=== PATIENT | male | born 1955 | race African-American/Black ===

== ENCOUNTER 2017-05-25 15:39 | Inpatient (IN) | payer MEDICARE, OTHER ==
[~2017-05-25] VITALS: Ht 175.3 cm; Wt 108.8 kg
[~2017-05-25 15:39] MED LIST: ATOR40TA21 PO; CALC667C4 PO; CARV6.2579 PO; CHLO25TA14 PO; CNC30T PO; COU2 PO; DOCU-159 PO; FOLI-49 PO; SEVE800T10 PO
[2017-05-25] MEDS ORDERED: ASPIRIN 81 MG TAB PO STA (16:12)
--- NOTE | 2017-05-25 16:16 | ERA ---
ER Documentation Chief Complaint Date/Time DATE: 05/25/17 TIME: 16:13 Chief Complaint pt shayla from dailysis for pain at sabine cath site, inserted 05/24/17 & cp HPI Patient is a 62-year-old male with diabetes mellitus, hypertension, and end- stage renal disease who presents to the ER with sudden onset, constant, moderate dull, pressure-like substernal chest pain. He denies shortness of breath. He denies radiation to the back, arms or neck. He denies pleuritic pain. He denies cough. He denies abdominal pain. He denies diaphoresis or vomiting. Patient had a dialysis catheter placed yesterday, but did not have pain around the dialysis catheter earlier today. He was 2 hours into his dialysis when his symptoms started. He states that he felt anxious when the pain started. The pain was 5 out of 10 at onset and is currently 1 out of 10. The patient denies history of ME or coronary artery disease and denies having had recent catheterization or stress test. 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 ROS All systems reviewed and are negative except as per history of present illness. Medications Home Meds Discontinued Reported Medications Warfarin Sod (Coumadin) 2 Mg Tab, 4 MG PO DAILY for 30 Days, TAB 04/13/16 Cinacalcet* (Sensipar*) 30 Mg Tab, 30 MG PO DAILY, TAB 04/05/16 Folic Acid* (Folic Acid*) 1 Mg Tablet, 1 MG PO DAILY, TAB 04/05/16 Carvedilol* (Carvedilol*) 6.25 Mg Tablet, 6.25 MG PO BID, #60 TAB 04/05/16 Docusate Sodium* (Docusate Sodium*) 100 Mg Capsule, 100 MG PO TID, #60 CAP 04/05/16 Chlorpromazine Hcl* (Chlorpromazine Hcl*) 25 Mg Tablet, 25 MG PO TID, TAB 04/05/16 Sevelamer Hcl* (Renagel*) 800 Mg Tablet, 800 MG PO TID 01/22/12 Calcium Acetate (Phoslo) 667 Mg Capsule, 667 MG PO TID 01/22/12 Atorvastatin (Lipitor) 40 Mg Tablet, 40 MG PO DAILY 01/22/12 Allergies Allergies: Coded Allergies: No Known Allergy (Unverified , 05/25/17) PMhx/Soc Past medical history: Diabetes mellitus, hypertension, end-stage renal disease Past surgical history: Dialysis catheter Social history: Denies current or prior alcohol or tobacco History of Surgery: Yes (Right upper arm AV fistula) Anesthesia Reaction: No Hx Neurological Disorder: No Hx Respiratory Disorders: No Hx Cardiac Disorders: Yes (tachycardia, non-stemi) Hx Psychiatric Problems: No Hx Miscellaneous Medical Probl: Yes (dm) Hx Alcohol Use: No Hx Substance Use: No Hx Tobacco Use: No Smoking Status: Never smoker FmHx Noncontributory Physical Exam Vitals Vital Signs Date Time Temp Pulse Resp B/P Pulse Ox O2 Delivery O2 Flow Rate FiO2 05/25/17 16:02 92 17 129/61 97 Room Air 05/25/17 15:56 97.9 89 20 152/92 97 Physical Exam Const: Alert, no acute distress Head: Atraumatic Eyes: Normal Conjunctiva, no pallor, no icterus ENT: Normal External Ears, Nose and Mouth. Mucous membranes moist Neck: Full range of motion..~ No meningismus. No JVD Resp: Clear to auscultation bilaterally, no wheezes, no rales Cardio: Regular rate and rhythm, no murmurs Abd: Soft, non tender, non distended. Skin: No petechiae or rashes Back: No midline or flank tenderness Ext: No cyanosis, 2+ pitting edema to the upper shins bilaterally, symmetric Neur: Awake and alert, cranial nerves II through XII intact bilaterally, strength and sensation full in 4 extremities. Psych: Normal Mood and Affect Result Diagram: 05/25/17 1815 05/25/17 1815 Results 24 hrs Laboratory Tests Test 05/25/17 18:15 White Blood Count 6.210^3/ul Red Blood Count 3.9310^6/ul Hemoglobin 9.7g/dl Hematocrit 31.0% Mean Corpuscular Volume 78.9fl Mean Corpuscular Hemoglobin 24.7pg Mean Corpuscular Hemoglobin Concent 31.3g/dl Red Cell Distribution Width 15.9% Platelet Count 52870^3/UL Mean Platelet Volume 11.5fl Neutrophils % 67.7% Lymphocytes % 6.8% Monocytes % 11.5% Eosinophils % 12.8% Basophils % 0.7% Nucleated Red Blood Cells % 0.0/100WBC Neutrophils # (Manual) 4.210^3/ul Lymphocytes # 0.410^3/ul Monocytes # 0.710^3/ul Eosinophils # 0.810^3/ul Basophils # 0.010^3/ul Nucleated Red Blood Cells # 0.010^3/ul Prothrombin Time 14.6Sec Prothrombin Time Ratio 1.1 INR International Normalized Ratio 1.14 Activated Partial Thromboplast Time 34.8Sec Sodium Level 141mmol/L Potassium Level 4.4mmol/L Chloride Level 98mmol/L Carbon Dioxide Level 20mmol/L Anion Gap 27 Blood Urea Nitrogen 82mg/dl Creatinine 16.48mg/dl Glucose Level 85mg/dl Calcium Level 6.4mg/dl Total Bilirubin 0.1mg/dl Direct Bilirubin 0.00mg/dl Indirect Bilirubin 0.1mg/dl Aspartate Amino Transf (AST/SGOT) < 8IU/L Alanine Aminotransferase (ALT/SGPT) 28IU/L Alkaline Phosphatase 97IU/L Troponin I 0.080ng/ml B-Type Natriuretic Peptide 71805EM/ML Total Protein 6.9g/dl Albumin 3.5g/dl Globulin 3.40g/dl Albumin/Globulin Ratio 1.02 Current Medications Medications (Trade) Dose Ordered Sig/Izabela Route PRN Reason Start Time Stop Time Status Last Admin Dose Admin Aspirin (Aspirin) 162 mg ONCE STAT PO 05/25/17 16:12 05/25/17 16:14 DC Ondansetron HCl (Zofran Inj) 4 mg ER BRIDGE PRN IV NAUSEA AND/OR VOMITING 05/25/17 20:00 05/26/17 19:59 UNV Acetaminophen (Tylenol Tab) 650 mg ER BRIDGE PRN PO MILD PAIN/FEVER 05/25/17 20:00 05/26/17 19:59 UNV Procedures/MDM EKG read by me: Time 1634, rate 76 Rhythm: Sinus bradycardia Castor: Right superior axis Intervals: Normal ST-T waves: T-wave inversion in aVL only does not appear ischemic Ectopy: Frequent PACs and pattern of atrial bigeminy Q-waves: Questionable inferior Q waves, poor R-wave progression Impression: Bradycardia with atrial bigeminy, right ventricular hypertrophy , possible prior inferior ME, no obvious ischemia MDM: Patient is a 62-year-old male who presents to the ER with chest pain while at dialysis. His initial EKG is nonischemic. His first troponin is 0.08, which is not remarkable in the setting of end-stage renal disease. The patient had a dialysis catheter placed yesterday, and on x-ray the positioning appears to be unusual. A CT was performed, and it appears that the catheter tracks through the soft tissue towards the right subclavian vein, but is not well- positioned. He is having mild bleeding from the insertion site. He will likely need to have the catheter removed and a new one placed. I will admit him for further regiment of his dialysis catheter as well as chest pain workup. He received aspirin prior to ER arrival. On reassessment his pain had somewhat improved. A deep brachial peripheral line was placed with ultrasound guidance by myself due to poor IV access. The patient does not have indications for emergent dialysis at this time. I discussed the case with Dr. Catalan. Departure Diagnosis: Primary Impression: Chest pain Qualified Code: R07.9 - Chest pain, unspecified type Additional Impression: Complication of vascular dialysis catheter Qualified Code: T82.49XA - Other complication of vascular dialysis catheter, initial encounter Condition: ISAEL Randhawa MD May 25, 2017 16:12
--- NOTE | 2017-05-25 17:17 | RADRPT ---
PROCEDURE: Portable chest x-ray. CLINICAL INDICATION: 62 years of age, male. Chest pain. TECHNIQUE: Portable AP view of the chest. COMPARISON: April 11, 2016 FINDINGS: There is a double lumen hemodialysis catheter that has an unusual position. It may have been insert ed in the left supraclavicular fossa. The line crosses midline above the clavicles and the tip over lies the medial right clavicle and right lung apex. It is not situated in the SVC or right atrium. This line is new since prior exam. Enlarged cardiopericardial silhouette. Mediastinal contours are otherwise normal. Pulmonary vessels are prominent and indistinct with prominent interstitial markings. Negative for f ocal lung consolidation. Negative for pleural effusion or pneumothorax. No acute bony abnormality. IMPRESSION: Cardiomegaly and interstitial pulmonary edema. Unusual position of the double-lumen hemodialysis catheter. Recommend correlation with the procedur e history. The tip is not situated in the SVC or right atrium. This line is new since prior chest x-ray April 11, 2016 and does not follow the expected anatomic course of the veins. Suggest further e valuation with chest CT that may be performed without intravenous contrast. Findings were discussed with Dr. Kj Washington by Dr. Mackenzie Elias on May 25, 2017 at 5:55 PM. RPTAT: HCTS Physician Nuris Date Time Electronically viewed and signed by Physician Nuris on 05/25/2017 17:58 CS/
[2017-05-25 18:37] LABS: ABNORMAL IP MESSAGE 1; BASOPHILS % 0.7 % (0.0-2.0); EOSINOPHILS # 0.8 10^3/ul (0.0-0.5); EOSINOPHILS % 12.8 % (0.0-7.0); HEMOGLOBIN 9.7 g/dl (14.0-18.0); LYMPHOCYTES # 0.4 10^3/ul (0.8-2.9); LYMPHOCYTES % 6.8 % (15.0-51.0); MEAN CORPUSCULAR HEMOGLOBIN 24.7 pg (29.0-33.0); MEAN CORPUSCULAR HGB CONC 31.3 g/dl (32.0-37.0); MEAN CORPUSCULAR VOLUME 78.9 fl (82.0-101.0); MEAN PLATELET VOLUME 11.5 fl (7.4-10.4); MONOCYTE # 0.7 10^3/ul (0.3-0.9); MONOCYTES % 11.5 % (0.0-11.0); NEUTROPHILS % 67.7 % (39.0-77.0); PLATELET COUNT 160 10^3/UL (140-415); POSITIVE DIFF @See below; RED BLOOD COUNT 3.93 10^6/ul (4.70-6.10); RED CELL DISTRIBUTION WIDTH 15.9 % (11.5-14.5); WHITE BLOOD COUNT 6.2 10^3/ul (4.8-10.8)
[2017-05-25 18:51] LABS: INR 1.14; PROTIME 14.6 Sec (12.2-14.2); PT RATIO 1.1
[2017-05-25 18:52] LABS: PARTIAL THROMBOPLASTIN TIME 34.8 Sec (25.0-35.0)
[2017-05-25 18:57] LABS: ALANINE AMINOTRANSFERASE 28 IU/L (13-69); ALBUMIN 3.5 g/dl (3.3-4.9); ALBUMIN/GLOBULIN RATIO 1.02; ALKALINE PHOSPHATASE 97 IU/L (42-121); ANION GAP 27 (8-16); ASPARTATE AMINO TRANSFERASE < 8 IU/L (15-46); BILIRUBIN,INDIRECT 0.1 mg/dl (0-1.1); BILIRUBIN,TOTAL 0.1 mg/dl (0.2-1.3); BLOOD UREA NITROGEN 82 mg/dl (7-20); CALCIUM 6.4 mg/dl (8.4-10.2); CARBON DIOXIDE 20 mmol/L (21-31); CHLORIDE 98 mmol/L (97-110); GLUCOSE 85 mg/dl (70-220); POTASSIUM 4.4 mmol/L (3.5-5.1); SODIUM 141 mmol/L (135-144); TOTAL PROTEIN 6.9 g/dl (6.1-8.1)
[2017-05-25 19:03] LABS: CREATININE 16.48 mg/dl (0.61-1.24)
--- NOTE | 2017-05-25 19:22 | RADRPT ---
AMENDMENT: 06/02/2017 11:35:24 PM Mackenzie Elias M.D One or more of the following dose reduction techniques were used: - Automated exposure control. - Adjustment of the mA and/or kV according to patient size. - Use of iterative reconstruction technique. Sagittal and coronal re-formations were constructed. PROCEDURE: CT CHEST WITHOUT CONTRAST: CLINICAL INDICATION: 62 years of age, male. Abnormal position of hemodialysis catheter seen on [facility] st x-ray COMPARISON: Chest x-ray from the same day TECHNIQUE: CT of the chest was performed without IV contrast. Dose information: The estimated radiation dose (CTDI vol mGy) for each series in this exam is 16.8 . The estimated cumulative dose (DLP mGy-cm) is 741 . FINDINGS: In the absence of intravenous contrast, the study constitutes a limited assessment of the solid orga ns and vessels. CHEST: Medical devices: There is a hemodialysis catheter that has been inserted into the left side of the n angel that is an abnormal position. The catheter does not enter the left internal jugular vein. It c ourses lateral to the left internal jugular vein and then anterior to the medial clavicles across mi dline within the subcutaneous fat. The distal tip is posterior to the right clavicle and may be sit uated in the right subclavian vein. There is soft tissue swelling and soft tissue gas in the left s alberto of the neck along the course of the catheter. Thyroid: Normal. Lymph nodes: No supraclavicular, axillary, mediastinal, or hilar lymphadenopathy. Vasculature: Evaluation of the vasculature is limited without intravenous contrast. There is calcif ication in the left brachiocephalic vein that is a small vessel in keeping with chronic thrombus. Ca lcification in the SVC and main pulmonary artery also likely represents chronic thrombus (). Main pulmonary artery is enlarged and measures 4.8 cm in keeping with pulmonary artery hypertension. There is focal calcification in the anterior wall of the main pulmonary artery in keeping with chr onic thrombus (). There is thin calcification in the sam of the right and left pulmonary arter ies in keeping with pulmonary artery hypertension. Atherosclerosis thoracic aorta and great vessels. Negative for thoracic aortic aneurysm. Heart: Cardiomegaly. There is extensive four-vessel coronary artery calcification. There is calcif ication of the aortic valve and mitral valve annulus. No pericardial effusion. Other mediastinal structures: Normal. Lung parenchyma and pleura: Mild diffuse ground glass opacity likely represents pulmonary edema. Ne gative for interlobular septal thickening. Airways: Normal. Chest wall: Body wall edema. There is advanced bilateral gynecomastia. Upper abdomen: There is extensive calcification of small arterial branches in keeping with end-stag e renal disease. There are bilateral enlarged multicystic kidneys in keeping with polycystic kidney disease. Musculoskeletal: Bones are osteopenic. No suspicious bone lesions. IMPRESSION: 1. Abnormal position of the hemodialysis catheter. The catheter has been inserted into the left mayo e of the neck and is not in the left internal jugular vein. It crosses midline in the soft tissues and the distal tip is posterior to the right clavicle and may be situated in the right subclavian ve in. Recommend surgery consultation for removal and replacement of the catheter. This line should n ot be used for hemodialysis. There is soft tissue swelling and soft tissue gas in the left side of t he neck. Correlate clinically for signs of infection or hematoma. 2. Left brachiocephalic vein is small and contains calcified material that likely represents chronic thrombus. The patency of this vein cannot be evaluated without intravenous contrast. Calcificatio n in the SVC and main pulmonary artery also likely represents chronic thrombus. 3. Cardiomegaly and extensive coronary artery calcification. Enlarged main pulmonary artery and mil d pulmonary artery wall calcifications are in keeping with pulmonary artery hypertension. 4. Diffuse ground-glass opacity in the lung parenchyma in keeping with interstitial pulmonary edema without intralobular septal thickening. 5. Polycystic kidney disease with enlarged multicystic kidneys. Critical results abnormal position of hemodialysis catheter and recommendation for surgery consultat ion were discussed with Dr. Kj Washington by Dr. Mackenzie Elias on May 25, 2017 at 6:55 PM. RPTAT: HCTS Physician Nuris Date Time Electronically viewed and signed by Charlotte Elias Physician on 06/02/2017 23:36 CS/
[2017-05-25 19:44] LABS: B-TYPE NATRIURETIC PEPTIDE 95100 PG/ML (0-125)
[2017-05-25 20:00] VITALS: BP 126/77; RESP 17
[2017-05-25] MEDS ORDERED: ONDANSETRON 4 MG INJ IV PRN (20:00)
[2017-05-25] MEDS ORDERED: ACETAMINOPHEN 325 MG TAB PO PRN (20:00)
[2017-05-25 20:59] VITALS: PULSE 92
[2017-05-25 21:29] VITALS: Ht 175.3 cm; Wt 108.8 kg
[2017-05-25] MEDS: morphine 2 MG INJ IV PRN (21:51)
[2017-05-26] VITALS (20 sets, daily range): BP systolic 102–146; BP diastolic 47–78; PULSE 70–141; RESP 15–20
[2017-05-26] MEDS ORDERED: LORAZEPAM 2 MG INJ IV PRN (01:50)
[2017-05-26] MEDS ORDERED: LORAZEPAM 2 MG INJ ONE (02:00)
[2017-05-26] MEDS: morphine 2 MG INJ IV PRN (02:55)
[2017-05-26] MEDS ORDERED: PHYTONADIONE 10 MG/ML INJ ONE (04:19)
[2017-05-26 05:22] LABS: TROPONIN-I 0.12 ng/ml (0.00-0.12)
[2017-05-26 06:42] LABS: CK-MB 13.9 ng/ml (0.0-2.4)
[2017-05-26 06:53] LABS: ABNORMAL IP MESSAGE 1; BASOPHIL # 0.1 10^3/ul (0.0-0.1); EOSINOPHILS # 1.1 10^3/ul (0.0-0.5); HEMOGLOBIN 9.9 g/dl (14.0-18.0); LYMPHOCYTES # 0.5 10^3/ul (0.8-2.9); MEAN CORPUSCULAR HEMOGLOBIN 25.3 pg (29.0-33.0); MEAN CORPUSCULAR HGB CONC 31.9 g/dl (32.0-37.0); MEAN CORPUSCULAR VOLUME 79.3 fl (82.0-101.0); MEAN PLATELET VOLUME 10.8 fl (7.4-10.4); MONOCYTE # 0.7 10^3/ul (0.3-0.9); MONOCYTES % 10.1 % (0.0-11.0); NEUTROPHILS % 64.6 % (39.0-77.0); PLATELET COUNT 155 10^3/UL (140-415); POSITIVE DIFF @See below; RED BLOOD COUNT 3.91 10^6/ul (4.70-6.10); RED CELL DISTRIBUTION WIDTH 15.9 % (11.5-14.5); WHITE BLOOD COUNT 6.7 10^3/ul (4.8-10.8)
--- NOTE | 2017-05-26 07:04 | HP ---
DATE OF ADMISSION: 05/25/2017 CHIEF COMPLAINT: Chest pain. HISTORY OF PRESENT ILLNESS: Mr. Cannon is a pleasant 62-year-old male, who has a history of diabetes mellitus, hypertension, end- stage renal disease, as well as obesity, who was at hemodialysis today. When he was about 1-1/2 hours into dialysis all of a sudden he developed sudden onset and with left-sided chest pain radiating to his neck and his back. The patient had a temporary dialysis catheter placed yesterday after he had developed some problems with he has AV fistula in his right hand. However, in the emergency room, a CT scan showed that the temporary access was placed wrongly and was not actually in the venous embolism, but was in soft tissue. He denied shortness of breath. There has been no fever. He has an area just above the incision site that has been oozing blood and the bleeding is being controlled using Surgicel and multiple pressure dressings. REVIEW OF: Otherwise a 12-point review of systems negative. He has not had any passing out episode. He has not had any dizziness. No abdominal pain. PAST MEDICAL HISTORY: 1. Hypertension. 2. Diabetes. 3. Anemia of chronic kidney disease. 4. End-stage renal disease, on hemodialysis. 5. Upper extremity thrombosis. Meanwhile patient was supposed to be on Coumadin. 6. Polycystic kidney disease. ALLERGIES: HE HAS NO KNOWN DRUG ALLERGIES. SOCIAL HISTORY: Denies tobacco, alcohol, or illicit drug use. FAMILY HISTORY: Noncontributory. MEDICATIONS: Reconciled from his last visit. However, the patient and his report that he does not take any medications. PHYSICAL EXAMINATION: VITAL SIGNS: Temperature 97.9, pulse 92, respirations 17, blood pressure 129/61, saturations 97 percent on room air. GENERAL: Obese male, alert, oriented, in no distress. HEENT: Head is normocephalic. Pupils equal, round, reactive. No scleral icterus. Mucous membranes moist. Posterior pharynx free of exudate. NECK: Patient has an oozing site on the left part of his chest and you can see the PermCath. Dry dressing to left side of his neck, otherwise anterior chest wall as well. The oozing site is requiring multiple pressure dressings. LUNGS: Auscultation of the chest revealed reduced breath sounds bilaterally. CARDIOVASCULAR: S1, S2 with no added sounds or murmurs. ABDOMEN: Soft, nontender, nondistended with normoactive bowel sounds. LOWER EXTREMITIES: There is bilateral mild edema, but no focal deficits. SKIN: Devoid of rash or jaundice. LAB VALUES: WBC count was normal, hemoglobin was low at 9.7, hematocrit 31, platelets were normal at 16,000. INR was 1.14, which is consistent with the fact that the patient was not taking his Coumadin. BUN 82, creatinine 16.48, which is quite elevated; his CO2 level was a little on the low side as well at 20; calcium was also low at 6.4. Troponin 0.08. So an EKG was quite abnormal with bradycardia, bigeminy, but no evidence of acute ME. Patient also had multiple PACs and possible Q-waves. IMAGING STUDIES: A CT was done of the chest and this showed that the catheter was not in the venous system at all, but instead tracks through soft tissue to his right subclavian vein with the tip in the right subclavian vein and soft tissue swelling and gas in the left side of the neck. Also noted was polycystic kidney disease with enlarged multicystic kidneys and chronic thrombosis in the left brachiocephalic, superior vena cava and pulmonary artery. ASSESSMENT: A 62-year-old male, who was sent from hemodialysis because of chest pain with the followin. Improper positioning of temporary dialysis catheter tracking through soft tissue with tip in the superior vena cava and the right subclavian vein. 2. Left anterior wall chest pain, likely secondary to #1. 3. End-stage renal disease, on hemodialysis. 4. Anemia of chronic kidney disease. 5. Intractable bleeding in the left neck requiring pressure dressings. 6. 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 7. Diabetes mellitus with good control. 8. Hypertension, also with good control. 9. Pulmonary artery hypertension. 10. Polycystic kidney disease, likely causing #3. 11. Troponin Leak likely 2/2 ESRD PLAN: 1. The patient has been admitted to telemetry floor. Will need urgent vascular surgical consultation to remove the catheter and possibly place a new one. He does have a graft on his right arm, which he says that the site is still fairly usable, but we will defer to Vascular Surgery, as well as Nephrology regarding this. In the interim, we will continue to use pressure dressings on his bleeding. The patient might have received some heparin during dialysis, which may be contributing to this, as the patient states he does not take his Coumadin. However, , I am going to give a dose of FFP and vitamin K to see if this will help a little bit with the bleeding. The patient was anemic prior to this and so we will also type and screen packed red cells just in case you need transfusion with the next hemodialysis. To be on the safe side, we will complete ACS rule out get a 2D echo as well as Cardiology consult. Even though I believe the patient's chest pain is likely from the catheter that is trapped into his soft tissue. Regarding his chronic thrombus, again defer to Vascular Surgery regarding permanent management. However, patient is not a candidate for anticoagulation at this time, and so further interventions will depend on the clinical findings. 2. For his diabetes mellitus, he was placed on an 1800-calorie diet and sliding scale insulin and we will monitor his blood glucose levels and for his high blood pressure, we will resume his home meds. This plan of care has been reviewed with patient in detail. Questions have been answered. 3. Prophylaxis is SCDs. Dictated By: Abril Paul MD /liang/emily /Document#: [id number] VIVIAN
[2017-05-26 07:19] LABS: ALBUMIN 3.1 g/dl (3.3-4.9); CALCIUM 6.1 mg/dl (8.4-10.2); PHOSPHORUS 8.4 mg/dl (2.5-4.9); POTASSIUM 5.2 mmol/L (3.5-5.1)
[2017-05-26 07:27] LABS: INR 1.19; PARTIAL THROMBOPLASTIN TIME 38.3 Sec (25.0-35.0); PROTIME 15.2 Sec (12.2-14.2); PT RATIO 1.2
[2017-05-26 07:29] LABS: CREATININE 17.12 mg/dl (0.61-1.24)
[2017-05-26 07:34] LABS: TROPONIN-I 0.149 ng/ml (0.00-0.12)
[2017-05-26 07:51] LABS: ALBUMIN 3.3 g/dl (3.3-4.9); ALBUMIN/GLOBULIN RATIO 1.03; CALCIUM 6.2 mg/dl (8.4-10.2); MAGNESIUM 1.8 mg/dl (1.7-2.5); PHOSPHORUS 8.5 mg/dl (2.5-4.9); POTASSIUM 5.2 mmol/L (3.5-5.1); TOTAL PROTEIN 6.5 g/dl (6.1-8.1)
[2017-05-26] MEDS ORDERED: CALCIUM GLUCONATE 10% 2 GM in SOD CHLORIDE 0.9% 100 ML IVPB ONE (08:00)
[2017-05-26 08:02] LABS: CREATININE 17.13 mg/dl (0.61-1.24)
--- NOTE | 2017-05-26 12:39 | CONS ---
Date/Time of Note Date/Time of Note DATE: 05/26/17 TIME: 12:31 Assessment/Plan Assessment/Plan Additional Assessment/Plan 1. Left neck, catheter site bleeding 2. Impropre positioning of left HD catheter 3. ESRD on HD MWF 4. Anemia multifactorial Chronic renal failure + bleeding 5. Hyperkalemia, uremia due to missed HD 6. 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 8. Diabetes melitus 9. Pulmonary HTN 10.H/o Polycystic Kidney disease causign ESRD onHD Plan: k high, Hb stable pt has pressure dressing on left neck, left chest permacath in place will plan for HD today after catether replacedment has been consulted to see pt- will be seen today Pt currently hemodynamically stable Consultation Date/Type/Reason Admit Date/Time May 25, 2017 at 19:39 Date of Consultation: May 26, 2017 Type of Consultation: CONSULTATION Reason for Consultation Acute hyperkalemia, ESRD on HD, Uremia Referring Provider: VASYL GALLO Hx of Present Illness 62-year-old male, who has a history of diabetes mellitus, hypertension, end- stage renal disease, as well as obesity, who was at hemodialysis today. When he was about 1-1/2 hours into dialysis all of a sudden he developed sudden onset and with left-sided chest pain radiating to his neck and his back. The patient had a temporary dialysis catheter placed yesterday after he had developed some problems with he has AV fistula in his right hand. However, in the emergency room, a CT scan showed that the temporary access was placed wrongly and was not actually in the venous embolism, but was in soft tissue. He denied shortness of breath. There has been no fever. He has an area just above the incision site that has been oozing blood and the bleeding is being controlled using Surgicel and multiple pressure dressings. pt dialysis catheter not in appropriate position, need to be changed, Vascular surgery has been consulted on the case. Constitutional: no complaints Eyes: no complaints ENT: other (left neck bleeding ) Respiratory: no complaints Cardiovascular: no complaints Gastrointestinal: no complaints Genitourinary: no complaints Musculoskeletal: no complaints Skin: no complaints Neurologic: no complaints Endocrine: no complaints Lymphatic: no complaints Psychological: no complaints Immunologic: no complaints Past Medical History Medical History: other (ESRD on HD, HTN ) Past Surgical History Past Surgical Hx: other (RUE AVR, LEft chest permacath surgery ) Family History Significant Family History: no pertinent family hx Social History Alcohol Use: none Smoking Status: Never smoker Drug Use: none Exam/Review of Systems Vital Signs Vitals Vital Signs Date Time Temp Pulse Resp B/P Pulse Ox O2 Delivery O2 Flow Rate FiO2 05/26/17 12:07 98.0 94 18 140/65 99 05/25/17 20:23 Room Air Intake and Output 05/25/17 05/25/17 05/26/17 15:00 23:00 07:00 Intake Total 250 ml Balance 250 ml Exam GENERAL: Obese male, alert, oriented, in no distress. HEENT: Head is normocephalic. Pupils equal, round, reactive. No scleral icterus. Mucous membranes moist. Posterior pharynx free of exudate. NECK: Patient has an oozing site on the left part of his chest and you can see the PermCath. Dry dressing to left side of his neck, otherwise anterior chest wall as well. The oozing site is requiring multiple pressure dressings. LUNGS: Auscultation of the chest revealed reduced breath sounds bilaterally. CARDIOVASCULAR: S1, S2 with no added sounds or murmurs. ABDOMEN: Soft, nontender, nondistended with normoactive bowel sounds. LOWER EXTREMITIES: There is bilateral mild edema, but no focal deficits. SKIN: Devoid of rash or jaundice. Results Result Diagram: 05/26/17 0431 05/26/17 0431 Results 24 hrs Laboratory Tests Test 05/25/17 18:15 05/25/17 23:00 05/26/17 04:31 White Blood Count 6.2 6.7 Red Blood Count 3.93 L 3.91 L Hemoglobin 9.7 L 9.9 L Hematocrit 31.0 L 31.0 L Mean Corpuscular Volume 78.9 L 79.3 L Mean Corpuscular Hemoglobin 24.7 L 25.3 L Mean Corpuscular Hemoglobin Concent 31.3 L 31.9 L Red Cell Distribution Width 15.9 H 15.9 H Platelet Count 160 155 Mean Platelet Volume 11.5 H 10.8 H Neutrophils % 67.7 64.6 Lymphocytes % 6.8 L 7.0 L Monocytes % 11.5 H 10.1 Eosinophils % 12.8 H 17.0 H Basophils % 0.7 1.0 Nucleated Red Blood Cells % 0.0 0.0 Neutrophils # (Manual) 4.2 4.3 Lymphocytes # 0.4 L 0.5 L Monocytes # 0.7 0.7 Eosinophils # 0.8 H 1.1 H Basophils # 0.0 0.1 Nucleated Red Blood Cells # 0.0 0.0 Prothrombin Time 14.6 H 15.2 H Prothrombin Time Ratio 1.1 1.2 INR International Normalized Ratio 1.14 1.19 Activated Partial Thromboplast Time 34.8 38.3 H Sodium Level 141 143 Potassium Level 4.4 5.2 H Chloride Level 98 99 Carbon Dioxide Level 20 L 22 Anion Gap 27 H 27 H Blood Urea Nitrogen 82 H 84 H Creatinine 16.48 H 17.13 H Glucose Level 85 88 Calcium Level 6.4 L 6.2 L Total Bilirubin 0.1 L 0.0 L Direct Bilirubin 0.00 0.00 Indirect Bilirubin 0.1 0.0 Aspartate Amino Transf (AST/SGOT) < 8 L 10 L Alanine Aminotransferase (ALT/SGPT) 28 27 Alkaline Phosphatase 97 95 Troponin I 0.080 0.120 0.149 *H B-Type Natriuretic Peptide 38216 H Total Protein 6.9 6.5 Albumin 3.5 3.3 Globulin 3.40 H 3.20 Albumin/Globulin Ratio 1.02 1.03 Creatine Kinase 1550 H 1455 H Creatine Kinase Index 0.9 0.9 Creatinine Kinase MB (Mass) 13.90 H 13.00 H Phosphorus Level 8.5 H Magnesium Level 1.8 Medications Medications Current Medications Morphine Sulfate (morphine) 2 mg Q4H PRN IV PAIN Last administered on 02:55; Admin Dose 2 MG; Start 05/25/17 at 22:00 Lorazepam (Ativan) 1 mg Q4H PRN IV AGITATION/ANXIETY Last administered on 02:00; Admin Dose 1 MG; Start 05/26/17 at 01:50 SHAWNA WILHELM MD May 26, 2017 12:39
--- NOTE | 2017-05-26 12:50 | PN ---
Date/Time of Note Date/Time of Note DATE: 05/26/17 TIME: 12:40 Assessment/Plan VTE Prophylaxis VTE Prophylaxis Intervention: SCD's Lines/Catheters IV Catheter Type (from Nrsg): Peripheral IV Assessment/Plan Assessment/Plan IMPRESSION 1. Improper placement of Dialysis catheter, with oozing of blood 2. Left anterior wall chest pain, likely secondary to #1. but 3rd trop slightly elevated 3. End-stage renal disease, on hemodialysis. 4. Anemia of chronic kidney disease. 5. Pulmonary Edema 6. 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 7. Diabetes mellitus with good control. 8. Hypertension: BP within goal 9. Pulmonary artery hypertension. 10. Polycystic kidney disease, likely causing #3. 11. Troponin Leak likely 2/2 ESRD PLAN vascular surgeon for removal of catheter and placement of temporary access for dialysis. Nephrology on board chest pain likely form improper catheter placement, but third trop slightly elevated, most likely a result of demand ischemia in dialysis pt. cont current meds with adjustment as needed Subjective 24 Hr Interval Summary Free Text/Dictation continued oozing of blood at dialysis catheter site Exam/Review of Systems Vital Signs Vitals Vital Signs Date Time Temp Pulse Resp B/P Pulse Ox O2 Delivery O2 Flow Rate FiO2 05/26/17 12:07 98.0 94 18 140/65 99 05/25/17 20:23 Room Air Intake and Output 05/25/17 05/25/17 05/26/17 15:00 23:00 07:00 Intake Total 250 ml Balance 250 ml Exam Constitutional: alert, oriented, well developed Head: atraumatic, normocephalic Eyes: EOMI, PERRL Neck: other (oozing of blood in left upper chest) Respiratory: clear to auscultation, normal air movement Cardiovascular: nl pulses, regular rate and rhythm Gastrointestinal: non-tender, soft Extremities: normal pulses Results Result Diagram: 05/26/17 0431 05/26/17 0431 Results 24 hrs Laboratory Tests Test 05/25/17 18:15 05/25/17 23:00 05/26/17 04:31 White Blood Count 6.2 6.7 Red Blood Count 3.93 L 3.91 L Hemoglobin 9.7 L 9.9 L Hematocrit 31.0 L 31.0 L Mean Corpuscular Volume 78.9 L 79.3 L Mean Corpuscular Hemoglobin 24.7 L 25.3 L Mean Corpuscular Hemoglobin Concent 31.3 L 31.9 L Red Cell Distribution Width 15.9 H 15.9 H Platelet Count 160 155 Mean Platelet Volume 11.5 H 10.8 H Neutrophils % 67.7 64.6 Lymphocytes % 6.8 L 7.0 L Monocytes % 11.5 H 10.1 Eosinophils % 12.8 H 17.0 H Basophils % 0.7 1.0 Nucleated Red Blood Cells % 0.0 0.0 Neutrophils # (Manual) 4.2 4.3 Lymphocytes # 0.4 L 0.5 L Monocytes # 0.7 0.7 Eosinophils # 0.8 H 1.1 H Basophils # 0.0 0.1 Nucleated Red Blood Cells # 0.0 0.0 Prothrombin Time 14.6 H 15.2 H Prothrombin Time Ratio 1.1 1.2 INR International Normalized Ratio 1.14 1.19 Activated Partial Thromboplast Time 34.8 38.3 H Sodium Level 141 143 Potassium Level 4.4 5.2 H Chloride Level 98 99 Carbon Dioxide Level 20 L 22 Anion Gap 27 H 27 H Blood Urea Nitrogen 82 H 84 H Creatinine 16.48 H 17.13 H Glucose Level 85 88 Calcium Level 6.4 L 6.2 L Total Bilirubin 0.1 L 0.0 L Direct Bilirubin 0.00 0.00 Indirect Bilirubin 0.1 0.0 Aspartate Amino Transf (AST/SGOT) < 8 L 10 L Alanine Aminotransferase (ALT/SGPT) 28 27 Alkaline Phosphatase 97 95 Troponin I 0.080 0.120 0.149 *H B-Type Natriuretic Peptide 60610 H Total Protein 6.9 6.5 Albumin 3.5 3.3 Globulin 3.40 H 3.20 Albumin/Globulin Ratio 1.02 1.03 Creatine Kinase 1550 H 1455 H Creatine Kinase Index 0.9 0.9 Creatinine Kinase MB (Mass) 13.90 H 13.00 H Phosphorus Level 8.5 H Magnesium Level 1.8 Medications Medications Current Medications Morphine Sulfate (morphine) 2 mg Q4H PRN IV PAIN Last administered on 02:55; Admin Dose 2 MG; Start 05/25/17 at 22:00 Lorazepam (Ativan) 1 mg Q4H PRN IV AGITATION/ANXIETY Last administered on 8/26/ 17at 02:00; Admin Dose 1 MG; Start 05/26/17 at 01:50 JOVANI CHUNG MD May 26, 2017 12:50
--- NOTE | 2017-05-26 13:19 | OPR ---
Date/Time of Note Date/Time of Note DATE: 05/26/17 TIME: 13:17 Operative Report Procedure Date: May 26, 2017 Preoperative Diagnosis End-stage renal disease Postoperative Diagnosis Same Operation Performed 1 Removal of the permacath 2 spinal right femoral dialysis catheter Surgeon: ZOIE GOLDMAN MD Anesthesia Type: other Estimated Blood Loss: none Transfusion Required: no Specimen: none Grafts/Implants: none Complications: no Pt Condition Post Procedure: critical Indications End-stage renal disease Operative\Procedure Findings Dictated Procedure Description She was placed supine position prepped and draped in usual sterile fashion timeout was called Access was gained the right femoral vein after using 1% lidocaine I was advanced without any difficulty subcutaneous tissues were dilated 20 cm dialysis catheter was advanced over a guidewire secured to skin using silk sutures both ports of the catheter were aspirated and injected using a by saline solution Next the cuff of the catheter in the left internal jugular vein was identified Using a hemostat the catheter and the cuff were removed in entirety appropriate dressings applied ZOIE GOLDMAN MD May 26, 2017 13:19
[2017-05-26 19:23] LABS: MAGNESIUM 1.8 mg/dl (1.7-2.5); PHOSPHORUS 6.8 mg/dl (2.5-4.9)
[2017-05-26 23:57] LABS: CALCIUM 6.7 mg/dl (8.4-10.2); CREATININE 13.09 mg/dl (0.61-1.24); MAGNESIUM 1.9 mg/dl (1.7-2.5); POTASSIUM 4.4 mmol/L (3.5-5.1)
[2017-05-27] VITALS (12 sets, daily range): BP systolic 105–164; BP diastolic 58–90; PULSE 73–107; RESP 18–19
[2017-05-27] MEDS: MAGNESIUM SULFATE 2 GM/50 ML 50 ML IVPB ONE ×2 (00:30→00:50)
[2017-05-27] MEDS ORDERED: CALCIUM GLUCONATE 10% 2 GM in SOD CHLORIDE 0.9% 100 ML IVPB ONE (01:30)
[2017-05-27] MEDS ORDERED: POTASSIUM CHLORIDE 20 MEQ in SOD CHLORIDE 0.9% 100 ML IVPB ONE (01:30)
[2017-05-27] MEDS ORDERED: PHYTONADIONE 10 MG/ML INJ SC ONE (02:30)
[2017-05-27] MEDS ORDERED: MAGNESIUM OXIDE 400 MG TAB PO ONE (03:00)
[2017-05-27] MEDS ORDERED: CALCIUM CARBONATE 1.25 GM TAB PO SCH (03:30)
[2017-05-27] MEDS ORDERED: ONDANSETRON 4 MG INJ IV PRN (04:00)
[2017-05-27] MEDS ORDERED: LIDOCAINE 1% (MDV) 20 ML INJ SC ONE (06:00)
[2017-05-27 10:18] LABS: ABNORMAL IP MESSAGE 1; BASOPHIL # 0.1 10^3/ul (0.0-0.1); BASOPHILS % 0.7 % (0.0-2.0); EOSINOPHILS # 1.2 10^3/ul (0.0-0.5); EOSINOPHILS % 15.1 % (0.0-7.0); HEMATOCRIT 27.3 % (42.0-52.0); HEMOGLOBIN 8.4 g/dl (14.0-18.0); LYMPHOCYTES # 0.6 10^3/ul (0.8-2.9); LYMPHOCYTES % 7.1 % (15.0-51.0); MEAN CORPUSCULAR HEMOGLOBIN 24.8 pg (29.0-33.0); MEAN CORPUSCULAR HGB CONC 30.8 g/dl (32.0-37.0); MEAN CORPUSCULAR VOLUME 80.5 fl (82.0-101.0); MEAN PLATELET VOLUME 12.6 fl (7.4-10.4); MONOCYTES % 12.7 % (0.0-11.0); NEUTROPHILS % 63.9 % (39.0-77.0); PLATELET COUNT 142 10^3/UL (140-415); POSITIVE DIFF @See below; RED BLOOD COUNT 3.39 10^6/ul (4.70-6.10); RED CELL DISTRIBUTION WIDTH 16.3 % (11.5-14.5)
[2017-05-27 10:34] LABS: ALBUMIN 3.1 g/dl (3.3-4.9); CALCIUM 6.3 mg/dl (8.4-10.2); CREATININE 13.56 mg/dl (0.61-1.24); PHOSPHORUS 8.1 mg/dl (2.5-4.9); POTASSIUM 4.4 mmol/L (3.5-5.1)
--- NOTE | 2017-05-27 11:52 | PN ---
Date/Time of Note Date/Time of Note DATE: 05/27/17 TIME: 11:40 Assessment/Plan VTE Prophylaxis VTE Prophylaxis Intervention: SCD's Lines/Catheters IV [facility] Type [facility] Peripheral IV Assessment/Plan Chief Complaint/Hosp Course 1. Malpositioning of hemodialysis catheter. Status post emergent removal by vascular surgeon emergent placement of a right femoral vein hemodialysis catheter. Patient has been getting hemodialysis through the new catheter. 2. Left chest wall pain. Most probably secondary to malpositioned hemodialysis catheter with hemodialysis attempted through this catheter. Slight troponin elevation. This could be type II event. Will trend troponins. The patient denies any chest pain at this time. Will obtain cardiology evaluation. 3. Cardiomyopathy with ejection fraction of 25% as per echocardiogram done in March 2016. Based on the patient's medication reconciliation, it is unclear whether the patient has been on any cardiac medications including ARB or beta blockers for his underlying cardiomyopathy. As per the patient he was not on any medications at home. 4. Essential hypertension. We will start the patient on appropriate antihypertensives.. 5. End stage renal disease on hemodialysis. Hemodialysis as per nephrology. 6. Microcytic, hypochromic anemia. Will obtain an iron panel to evaluate for any underlying iron deficiency. 7. History of paroxysmal A. fib. Currently not on any cardiac medications. Will obtain cardiology consult. 8. DVT prophylaxis. Bilateral SCDs. 9. Fluids, electrolytes, and nutrition. Renal diet. 10. Plan. Obtain cardiology consult. Obtain 2D echocardiogram. Problems: Subjective 24 Hr Interval Summary Free Text/Dictation He has no more oozing of blood from the jugular vein catheter insertion site. Exam/Review of Systems Vital Signs Vitals Vital Signs Date Time Temp Pulse Resp B/P Pulse Ox O2 Delivery O2 Flow Rate FiO2 05/27/17 08:23 98.0 102 18 164/85 97 05/25/17 20:23 Room Air Intake and Output 05/26/17 05/26/17 05/27/17 15:00 23:00 07:00 Intake Total 1300 ml 200 ml Output Total 2700 ml Balance -1400 ml 200 ml Exam General: Adequately build 62 year-old male lying in bed in no apparent distress. HEENT: Normocephalic, atraumatic. Eyes: Anicteric sclerae, conjunctivae clear. ENT: Nasal septum midline, oral mucosa moist. Neck supple, no JVD noticed. Respiratory: Bilaterally diminished breath sounds. No use of accessory muscles of respiration. No adventitious breath sounds. Cardiovascular: S1, S2 heard. Regular rate and rhythm. Left chest wall dressing Abdomen: Soft, nontender, and nondistended. Bowel sounds positive in all 4 quadrants. Genitourinary: Deferred. Extremities: No cyanosis, no clubbing, no edema. Pedal pulses non-palpable. Right upper extremity AV fistula with positive bruit and thrill. Neurologic: Cranial nerves II through XII grossly intact. The patient is awake, alert, and oriented. Skin: Normal skin turgor. No skin rashes. Results Result Diagram: 05/27/1744 05/27/17 0944 Results 24 hrs Laboratory Tests Test 05/26/17 18:25 05/26/17 22:05 05/27/17 09:44 Phosphorus Level 6.8 H 8.1 H Magnesium Level 1.8 1.9 B-Type Natriuretic Peptide 62378 H Sodium Level 138 142 Potassium Level 4.4 4.4 Chloride Level 96 L 99 Carbon Dioxide Level 27 24 Anion Gap 19 #H 23 H Blood Urea Nitrogen 62 H 63 H Creatinine 13.09 #H 13.56 H Glucose Level 109 88 Calcium Level 6.7 L 6.3 L White Blood Count 8.0 Red Blood Count 3.39 L Hemoglobin 8.4 L Hematocrit 27.3 L Mean Corpuscular Volume 80.5 L Mean Corpuscular Hemoglobin 24.8 L Mean Corpuscular Hemoglobin Concent 30.8 L Red Cell Distribution Width 16.3 H Platelet Count 142 Mean Platelet Volume 12.6 H Neutrophils % 63.9 Lymphocytes % 7.1 L Monocytes % 12.7 H Eosinophils % 15.1 H Basophils % 0.7 Nucleated Red Blood Cells % 0.0 Neutrophils # (Manual) 5.1 Lymphocytes # 0.6 L Monocytes # 1.0 H Eosinophils # 1.2 H Basophils # 0.1 Nucleated Red Blood Cells # 0.0 Albumin 3.1 L Medications Medications Current Medications Morphine Sulfate (morphine) 2 mg Q4H PRN IV PAIN Last administered on 02:55; Admin Dose 2 MG; Start 05/25/17 at 22:00 Lorazepam (Ativan) 1 mg Q4H PRN IV AGITATION/ANXIETY Last administered on 02:00; Admin Dose 1 MG; Start 05/26/17 at 01:50 Ondansetron HCl (Zofran Inj) 4 mg Q6H PRN IV NAUSEA AND/OR VOMITING; Start at 04:00 HARVEY ROMEO NP May 27, 2017 11:51 HARVEY ROMEO NP May 27, 2017 11:51
[2017-05-27 11:54] LABS: IRON 43 ug/dl (35-150)
[2017-05-27] MEDS ORDERED: hydrALAzine 20 MG INJ IV PRN (12:00)
[2017-05-27 12:03] LABS: TOTAL IRON BINDING CAPACITY 181 ug/dl (241-421)
[2017-05-27] MEDS: LOSARTAN 25 MG TAB PO SCH (13:00)
--- NOTE | 2017-05-27 13:08 | RADRPT ---
Echocardiogram Report Patient Name: MARGARITA TOLEDO Gender: Male Date: 1955 Study Date: 27-May-2017 Agricultural Sciences Professor: Champ Taylor [facility] Location: 5539 Ref. Physician: HARVEY ROMEO Quality: Good Procedures: Transthoracic echocardiogram with complete 2D, M-Mode, and doppler examination. Indications: Chest Pain. 2D/M Mode Doppler Measurement Value Normal Ranges Measurement Value Normal Ranges LVIDd 2D 5.8 3.5 - 5.6 cm ANAT Vmax 2.3 cm2 LVIDs 2D 4.1 2.1 - 4.1 cm ANAT VTI 2.3 cm2 FS 2D 28.6 % AV Mean Gregory 1.6 m/sec LVPWd 2D 1.3 0.6 - 1.1 cm AV Mean PG 12.0 mmHg IVSd 2D 1.4 0.6 - 1.1 cm AV Peak Gregory 2.2 m/sec IVS/LVPW 2D 1.0 AV Peak PG 19.0 mmHg AoR Diam 2D 3.3 2.0 - 3.7 cm AV VTI 43.8 cm LA/Ao 2D 1 0 - 1 LVOT Mean Gregory 0.8 m/sec EDV 2D 192.0 cm3 LVOT Mean PG 3.0 mmHg ESV 2D 69.9 cm3 LVOT Peak Gregory 1.2 m/sec LA Dimen 2D 4.5 2.3 - 4.0 cm LVOT Peak PG 6.0 mmHg LVOT Diam 2.3 cm LVOT VTI 24.7 cm LVOT Area 4.2 cm2 MV E Peak Gregory 0.7 m/sec MV A Peak Gregory 1.2 m/sec MV E/A 0.6 MV Decel Time 254 msec MV E/A 0.6 TR Peak Gregory 2.8 m/sec TR Peak PG 31.0 mmHg RVSP 39.0 mmHg Findings Left Ventricle: Normal left ventricular cavity size. Moderate concentric left ventricular hypertrophy. Mild global left ventricular systolic dysfunction. Ejection fraction is visually estimated at 45 %. Right Ventricle: Normal right ventricular size. Normal right ventricular systolic function. Left Atrium: There is mild enlargement of left atrium. Right Atrium: The right atrium is normal in size. Mitral Valve: Mild mitral leaflet calcification. Moderate mitral annular calcification. Mild mitral valve regurgitation. Aortic Valve: Aortic valve Max velocity 2.18 m/sec. Max PG 19.00 mmHg. Mean PG 12.00 mmHg. Aortic valve area 2.34 cm2. Aortic sclerosis without stenosis. Aortic cusps appear moderately calcified. No aortic regurgitation. Tricuspid Valve: Normal appearance of the tricuspid valve. Estimated peak PA systolic pressure 39 mmHg. There is mild tricuspid regurgitation. Pulmonic Valve: Pulmonic valve not well visualized. Pericardium: Normal pericardium with no significant pericardial effusion. Aorta: Normal aortic root. IVC: Dilated IVC with respiratory collapse consistent with elevated right atrial pressure. Conclusions 1.Normal left ventricular cavity size. Moderate concentric left ventricular hypertrophy. Mild global left ventricular systolic dysfunction. Ejection fraction is visually estimated at 45 %. 2.There is mild enlargement of left atrium. 3.Mild mitral leaflet calcification. Moderate mitral annular calcification. Mild mitral valve regurgitation. 4.Aortic valve Max velocity 2.18 m/sec. Max PG 19.00 mmHg. Mean PG 12.00 mmHg. Aortic valve area 2.34 cm2. Aortic sclerosis without stenosis. Aortic cusps appear moderately calcified. No aortic regurgitation. 5.Normal appearance of the tricuspid valve. Estimated peak PA systolic pressure 39 mmHg. There is mild tricuspid regurgitation. Electronically Signed By: Julian Sosa 27-May-2017 13:07:38 -0700 Patient Name: MARGARITA TOLEDO Study Date: 27-May-2017 [id number]
[2017-05-27 13:16] LABS: CK-MB 8.79 ng/ml (0.0-2.4); TROPONIN-I 0.133 ng/ml (0.00-0.12)
--- NOTE | 2017-05-27 13:17 | CONS ---
Date/Time of Note Date/Time of Note DATE: 05/27/17 TIME: 13:14 Assessment/Plan Assessment/Plan Additional Assessment/Plan 1. Left neck, catheter site bleeding 2. Impropre positioning of left Permcath HD catheter s/p Removal on 05/26/17 3. ESRD on HD MWF 4. Anemia multifactorial Chronic renal failure + bleeding 5. Hyperkalemia, uremia due to missed HD 6. 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 8. Diabetes melitus 9. Pulmonary HTN 10.H/o Polycystic Kidney disease causign ESRD onHD Plan: k high, Hb stable, Left permacath ugarte sbeen removed, currently has right groin artur catheter, S/p HD yesterday Plan for HD tomorrow Pt currently hemodynamically stable will need Venogram on LUE and replacement of permacath will follow up Consultation Date/Type/Reason Admit Date/Time May 25, 2017 at 19:39 Initial Consult Date 05/26/17 Type of Consultation: NEPHROLOGY Referring Provider: VASYL GALLO 24 HR Interval Summary Free Text/Dictation pt having PVCs, Bp stable Exam/Review of Systems Vital Signs Vitals Vital Signs Date Time Temp Pulse Resp B/P Pulse Ox O2 Delivery O2 Flow Rate FiO2 05/27/17 12:00 73 05/27/17 12:00 98.0 18 126/90 98 05/25/17 20:23 Room Air Intake and Output 05/26/17 05/26/17 05/27/17 15:00 23:00 07:00 Intake Total 1300 ml 200 ml Output Total 2700 ml Balance -1400 ml 200 ml Exam Constitutional: alert Psych: no complaints Head: normocephalic Eyes: nl conjunctiva ENMT: nl external ears & nose Neck: non-tender, supple Respiratory: clear to auscultation, diminished breath sounds, normal air movement Cardiovascular: nl pulses, regular rate and rhythm Gastrointestinal: non-tender, soft Musculoskeletal: nl extremities to inspection, nl gait and stance, other ( Right groin artur ) Neurological: CATTYMAN II-XII intact Skin: nl turgor Lymph: nl lymph nodes Results Result Diagram: 05/27/17 0944 05/27/17 0944 Results 24 hrs Laboratory Tests Test 05/26/17 18:25 05/26/17 22:05 05/27/17 04:44 05/27/17 09:44 Phosphorus Level 6.8 H 8.1 H Magnesium Level 1.8 1.9 B-Type Natriuretic Peptide 78813 H Sodium Level 138 142 Potassium Level 4.4 4.4 Chloride Level 96 L 99 Carbon Dioxide Level 27 24 Anion Gap 19 #H 23 H Blood Urea Nitrogen 62 H 63 H Creatinine 13.09 #H 13.56 H Glucose Level 109 88 Calcium Level 6.7 L 6.3 L Iron Level 43 Total Iron Binding Capacity 181 L Percent Iron Saturation 24 Ferritin 231.0 White Blood Count 8.0 Red Blood Count 3.39 L Hemoglobin 8.4 L Hematocrit 27.3 L Mean Corpuscular Volume 80.5 L Mean Corpuscular Hemoglobin 24.8 L Mean Corpuscular Hemoglobin Concent 30.8 L Red Cell Distribution Width 16.3 H Platelet Count 142 Mean Platelet Volume 12.6 H Neutrophils % 63.9 Lymphocytes % 7.1 L Monocytes % 12.7 H Eosinophils % 15.1 H Basophils % 0.7 Nucleated Red Blood Cells % 0.0 Neutrophils # (Manual) 5.1 Lymphocytes # 0.6 L Monocytes # 1.0 H Eosinophils # 1.2 H Basophils # 0.1 Nucleated Red Blood Cells # 0.0 Hemoglobin A1c 5.8 Albumin 3.1 L Test 05/27/17 12:30 Creatine Kinase 1093 H Creatine Kinase Index Pending Creatinine Kinase MB (Mass) Pending Troponin I Pending Medications Medications Current Medications Morphine Sulfate (morphine) 2 mg Q4H PRN IV PAIN Last administered on 02:55; Admin Dose 2 MG; Start 05/25/17 at 22:00 Lorazepam (Ativan) 1 mg Q4H PRN IV AGITATION/ANXIETY Last administered on 02:00; Admin Dose 1 MG; Start 05/26/17 at 01:50 Ondansetron HCl (Zofran Inj) 4 mg Q6H PRN IV NAUSEA AND/OR VOMITING; Start at 04:00 Hydralazine HCl (Apresoline) 10 mg Q6H PRN IV SBP>160; Start 05/27/17 at 12:00 Carvedilol (Coreg) 3.125 mg BID PO Last administered on 05/27/17 12:46; Admin Dose 3.125 MG; Start 05/27/17 at 12:00 Losartan Potassium (Cozaar) 25 mg DAILY PO Last administered on 05/27/17t 13:00 ; Admin Dose 25 MG; Start 05/27/17 at 12:00 SHAWNA WILHELM MD May 27, 2017 13:17
--- NOTE | 2017-05-27 16:29 | CONS ---
DATE OF ADMISSION: 05/25/2017 DATE OF CONSULTATION: 05/27/2017 REASON FOR CONSULTATION: Abnormal troponin. CHIEF COMPLAINT: Chest and neck pain on the left side, at the site of the hemodialysis access. SOURCE OF INFORMATION: Thank you for this referral. History obtained by interview of the patient, and review of the whole chart. Discussion with the staff and physicians. HISTORY OF PRESENT ILLNESS: This is a pleasant 62-year-old -French gentleman with history of diabetes, hypertension, renal failure on dialysis and appeared to be poor compliant of any medication, who was on dialysis yesterday and was brought in because of pain. The patient said that he was told that his dialysis access in the right arm is not working. He was seen by his vascular surgeon, Dr. Couch. According to the patient someone in the group put in a hemodialysis access in this left neck. One hour into dialysis he was having severe pain at the site of the hemodialysis catheter. He was brought into the Emergency room. Workup included a chest CT scan that showed the hemodialysis catheter apparently is not in the right place. It has been removed since, and had hemodialysis access placed in the right femoral vein. The patient's pain has resolved as well. His troponin has been mildly elevated. His troponin has been at 0.1 with total CK of 1093 with MB fraction only 8.7. Review of the old chart showed that the patient's troponin has been ranging from 0.09 to maximum of 0.35 since 2011 that he has been in the hospital. PAST MEDICAL HISTORY: Mostly obtained from the review of the old chart. History of renal failure, on dialysis. History of paroxysmal atrial flutter, status post-DC cardioversion here by Dr. Boyd, about a month ago. History of polycystic kidney disease. History of hypertension. History of cardiomyopathy. Ejection fraction was, per previous old record, about 35 percent. This is during the atrial flutter though. 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 Diabetes, pulmonary hypertension. Anemia. Electrolyte abnormality. Hyperkalemia. ALLERGIES: NO KNOWN DRUG ALLERGIES. SOCIAL HISTORY: The patient denies any active tobacco, alcohol or drug abuse. FAMILY HISTORY: Denied coronary artery disease. MEDICATION: Apparently, the patient does not take his medications at all. REVIEW OF SYSTEMS: The patient denied all except for the above mentioned. PHYSICAL EXAMINATION: VITAL SIGNS: Temperature 98, heart rate 87, blood pressure 126/90, respiratory rate of 18. HEENT: Normocephalic, atraumatic. . Pupils are equal. NECK: Left sided status post-dialysis access, which was removed now, with pressure dressing. CARDIAC: Regular rate and rhythm. LUNGS: No wheezing. ABDOMEN: Obese, soft, nontender. EXTREMITIES: With positive lower extremity edema. NEUROLOGIC: Awake and alert. VASCULAR: Left vascular femoral vein hemodialysis access. LABORATORY: Sodium 142, potassium 4.4, BUN 63, creatinine 13.5. Glucose 88. WBC 8, hemoglobin 8.4, platelets 142,000. INR 1.19. IMAGING: CT scan of the chest shows abnormal position of hemodialysis access. The left brachiocephalic vein is small and contains calcified material, likely a chronic thrombus. Diffuse ground glass-like opacity in the lung parenchyma, consistent with pulmonary edema. Polycystic kidney. Echocardiogram done today, which was personally reviewed, shows ejection fraction about 45 percent. Aortic sclerosis, mild mitral insufficiency and tricuspid insufficiency. EKG: The EKG shows normal sinus rhythm with frequent PACs. Poor R wave progression. IMPRESSION: 1. Mildly abnormal troponin. Mostly related to a false positive troponin. 2. Cardiomyopathy. Etiology still not clear. 3. End-stage renal disease, on hemodialysis. 4. Chest pain and neck pain secondary to malposition of the hemodialysis access. 5. Hypertension. 6. Cardiomyopathy. 7. Anemia. 8. Status post-upper extremity vein thrombosis. 9. History of paroxysmal atrial fibrillation, status post- direct current cardioversion. Currently, however, he is not taking anticoagulation. RECOMMENDATIONS: The patient has been started on Carvedilol and Losartan, this should be appropriately continued. Dialysis as per renal. The patient needs workup still for the vascular dialysis access placement. I will start him on aspirin for now, but he does need to have ischemic workup at some point in the future. If he becomes compliant with his medication though. Dr. Boyd will follow the patient tomorrow. Thank you for this referral. Dictated By: Julian Sosa MD /liang/sary /Document#: [id number]
[2017-05-27] MEDS: ASPIRIN (EC) 81 MG TAB PO SCH (16:46)
[2017-05-28] VITALS (20 sets, daily range): BP systolic 116–147; BP diastolic 60–88; PULSE 72–139; RESP 19–20
[2017-05-28 07:53] LABS: CHOL/HDL RATIO 3.2 RATIO; MAGNESIUM 1.7 mg/dl (1.7-2.5)
[2017-05-28 08:09] LABS: CK-MB 7.09 ng/ml (0.0-2.4); TROPONIN-I 0.164 ng/ml (0.00-0.12)
[2017-05-28 08:14] LABS: BASOPHIL # 0.1 10^3/ul (0.0-0.1); BASOPHILS % 0.6 % (0.0-2.0); EOSINOPHILS # 1.1 10^3/ul (0.0-0.5); EOSINOPHILS % 13.2 % (0.0-7.0); HEMATOCRIT 24.3 % (42.0-52.0); HEMOGLOBIN 7.6 g/dl (14.0-18.0); LYMPHOCYTES # 0.7 10^3/ul (0.8-2.9); LYMPHOCYTES % 8.8 % (15.0-51.0); MEAN CORPUSCULAR HEMOGLOBIN 25.3 pg (29.0-33.0); MEAN CORPUSCULAR HGB CONC 31.3 g/dl (32.0-37.0); MEAN PLATELET VOLUME 11.7 fl (7.4-10.4); MONOCYTES % 12.7 % (0.0-11.0); NEUTROPHILS % 64.3 % (39.0-77.0); PLATELET COUNT 135 10^3/UL (140-415); WHITE BLOOD COUNT 7.9 10^3/ul (4.8-10.8)
[2017-05-28 08:19] LABS: ALBUMIN 2.7 g/dl (3.3-4.9); PHOSPHORUS 8.2 mg/dl (2.5-4.9); POTASSIUM 4.8 mmol/L (3.5-5.1)
[2017-05-28] MEDS: LOSARTAN 25 MG TAB PO SCH (09:00)
[2017-05-28 09:03] LABS: CREATININE 15.19 mg/dl (0.61-1.24)
[2017-05-28 09:06] LABS: CALCIUM 5.7 mg/dl (8.4-10.2)
[2017-05-28] MEDS: ASPIRIN (EC) 81 MG TAB PO SCH ×2 (09:44→09:46)
--- NOTE | 2017-05-28 10:23 | PN ---
Date/Time of Note Date/Time of Note DATE: 05/28/17 TIME: 10:18 Assessment/Plan VTE Prophylaxis VTE Prophylaxis Intervention: ambulation Lines/Catheters IV Catheter Type (from Nrsg): Saline Lock Assessment/Plan Chief Complaint/Hosp Course Assessment and plan 1. Malpositioning of hemodialysis catheter. Patient status post emergent removal by vascular surgeon and placement of right femoral vein hemodialysis catheter. Plan for vein mapping. Vascular surgeon is following 2. Left chest wall pain. Likely secondary to malpositioning of hemodialysis catheter that was previously on the left upper chest side. There is slight troponin elevation but this is also in the setting of renal insufficiency. Monitor trend. Continue with cardiology recommendations. Likely false elevated troponin. 3. Cardiomyopathy with ejection fraction 45%. It is reported that patient was not on any home medications. Cut Out Marker following at this time. Continue optimization with cardiac medications. Continue with lab technologist recommendations. 4. Essential hypertension. Continue antihypertensives and adjust as needed. 5. History of end-stage renal disease. On dialysis per control clerk head. 6. Microcytic hypochromic anemia. Likely of chronic disease. Will monitor at this time. 7. History of atrial fibrillation. Monitor on telemetry. Continue on beta- mat for now. 8. Hypocalcemia. We will replete. Continue with nephrology recommendations Disposition and plan: Vascular surgeon follow-up for vein mapping as is reported that unable to do so in IR. Replete calcium. Continue dialysis per control clerk head. Discussed plan of care with Dr. Costa Problems: Subjective 24 Hr Interval Summary Free Text/Dictation No reports of shortness of breath at this time. Appears comfortable at present. No other specific complaints. Denies any chest pain. Exam/Review of Systems Vital Signs Vitals Vital Signs Date Time Temp Pulse Resp B/P Pulse Ox O2 Delivery O2 Flow Rate FiO2 05/28/17 08:25 80 05/28/17 07:47 97.9 20 146/73 97 05/25/17 20:23 Room Air Intake and Output 05/27/17 05/27/17 05/28/17 15:00 23:00 07:00 Intake Total 800 ml 300 ml Output Total 100 ml Balance 800 ml 200 ml Exam Constitutional: alert, obese, oriented Psych: nl mood/affect Head: normocephalic Respiratory: clear to auscultation Cardiovascular: other (Regular rate) Gastrointestinal: non-tender, soft Musculoskeletal: swelling (Bilateral lower extremities +1) Neurological: MACHINE CEMENTER AND FOLDER II-XII intact, nl mental status, nl speech Results Result Diagram: 05/28/1762405/28/17 0625 Results 24 hrs Laboratory Tests Test 05/27/17 12:30 05/28/17 06:25 Creatine Kinase 1093 H 1012 H Creatine Kinase Index 0.8 0.7 Creatinine Kinase MB (Mass) 8.79 H 7.09 H Troponin I 0.133 *H 0.164 *H White Blood Count 7.9 Red Blood Count 3.00 L Hemoglobin 7.6 L Hematocrit 24.3 L Mean Corpuscular Volume 81.0 L Mean Corpuscular Hemoglobin 25.3 L Mean Corpuscular Hemoglobin Concent 31.3 L Red Cell Distribution Width 16.0 H Platelet Count 135 L Mean Platelet Volume 11.7 H Neutrophils % 64.3 Lymphocytes % 8.8 L Monocytes % 12.7 H Eosinophils % 13.2 H Basophils % 0.6 Nucleated Red Blood Cells % 0.0 Neutrophils # (Manual) 5.1 Lymphocytes # 0.7 L Monocytes # 1.0 H Eosinophils # 1.1 H Basophils # 0.1 Nucleated Red Blood Cells # 0.0 Sodium Level 142 Potassium Level 4.8 Chloride Level 99 Carbon Dioxide Level 24 Anion Gap 24 H Blood Urea Nitrogen 72 H Creatinine 15.19 H Glucose Level 95 Calcium Level 5.7 *L Phosphorus Level 8.2 H Magnesium Level 1.7 Albumin 2.7 L Triglycerides Level 95 Cholesterol Level 92 L LDL Cholesterol, Calculated 45 HDL Cholesterol 28 L Cholesterol/HDL Ratio 3.2 Medications Medications Current Medications Morphine Sulfate (morphine) 2 mg Q4H PRN IV PAIN Last administered on 02:55; Admin Dose 2 MG; Start 05/25/17 at 22:00 Lorazepam (Ativan) 1 mg Q4H PRN IV AGITATION/ANXIETY Last administered on 02:00; Admin Dose 1 MG; Start 05/26/17 at 01:50 Ondansetron HCl (Zofran Inj) 4 mg Q6H PRN IV NAUSEA AND/OR VOMITING; Start at 04:00 Hydralazine HCl (Apresoline) 10 mg Q6H PRN IV SBP>160; Start 05/27/17 at 12:00 Carvedilol (Coreg) 3.125 mg BID PO Last administered on 05/27/17 20:08; Admin Dose 3.125 MG; Start 05/27/17 at 12:00 Losartan Potassium (Cozaar) 25 mg DAILY PO Last administered on 05/27/17 13:00 ; Admin Dose 25 MG; Start 05/27/17 at 12:00 Aspirin 81 mg 81 mg DAILY PO Last administered on 05/28/17 09:46; Admin Dose 81 MG; Start 05/27/17 at 15:30 Calcium Gluconate/ Sodium Chloride (Ca Gluc/NS) 110 ml @ 110 mls/hr ONCE ONCE IVPB ; Start 05/28/17 at 09:30; Stop 05/28/17 at 10:29; Status UNV RUSSELL JENSEN May 28, 2017 10:23
[2017-05-28] MEDS ORDERED: CALCIUM GLUCONATE 10% 1 GM in SOD CHLORIDE 0.9% 100 ML IVPB ONE (11:30)
--- NOTE | 2017-05-28 15:35 | CONS ---
Date/Time of Note Date/Time of Note DATE: 05/28/17 TIME: 15:32 Assessment/Plan Assessment/Plan Additional Assessment/Plan Chest wall pain, resolved Cardiomyopathy with ejection fraction 45% History of paroxysmal fibrillation status post cardioversion, noncompliant with anticoagulation End-stage renal disease on hemodialysis -Patient's chest discomfort was associated with new dialysis catheter placement and resolved since removal. Continue beta-mat and uptitrate as blood pressure permits. Continue ARB for afterload reduction. Fluid management via hemodialysis as per our nephrology colleagues. Consultation Date/Type/Reason Admit Date/Time May 25, 2017 at 19:39 Initial Consult Date 05/26/17 Type of Consultation: cv Referring Provider: VASYL GALLO 24 HR Interval Summary Free Text/Dictation Denies palpitations, chest pain or shortness of breath, overall feeling better Exam/Review of Systems Vital Signs Vitals Vital Signs Date Time Temp Pulse Resp B/P Pulse Ox O2 Delivery O2 Flow Rate FiO2 05/28/17 12:37 90 05/28/17 11:47 97.8 20 137/70 95 05/25/17 20:23 Room Air Intake and Output 05/27/17 05/27/17 05/28/17 15:00 23:00 07:00 Intake Total 800 ml 300 ml Output Total 100 ml Balance 800 ml 200 ml Exam No apparent distress Constitutional: alert, obese, oriented Head: normocephalic Respiratory: other (Coarse breath sounds bilaterally, no wheezing) Cardiovascular: other (S1-S2 heard), regular rate and rhythm Gastrointestinal: bowel sounds, non-tender, soft Extremities: edema Results Result Diagram: 05/28/17 0625 05/28/17 0625 Results 24 hrs Laboratory Tests Test 05/28/17 06:25 White Blood Count 7.9 Red Blood Count 3.00 L Hemoglobin 7.6 L Hematocrit 24.3 L Mean Corpuscular Volume 81.0 L Mean Corpuscular Hemoglobin 25.3 L Mean Corpuscular Hemoglobin Concent 31.3 L Red Cell Distribution Width 16.0 H Platelet Count 135 L Mean Platelet Volume 11.7 H Neutrophils % 64.3 Lymphocytes % 8.8 L Monocytes % 12.7 H Eosinophils % 13.2 H Basophils % 0.6 Nucleated Red Blood Cells % 0.0 Neutrophils # (Manual) 5.1 Lymphocytes # 0.7 L Monocytes # 1.0 H Eosinophils # 1.1 H Basophils # 0.1 Nucleated Red Blood Cells # 0.0 Sodium Level 142 Potassium Level 4.8 Chloride Level 99 Carbon Dioxide Level 24 Anion Gap 24 H Blood Urea Nitrogen 72 H Creatinine 15.19 H Glucose Level 95 Calcium Level 5.7 *L Phosphorus Level 8.2 H Magnesium Level 1.7 Creatine Kinase 1012 H Creatine Kinase Index 0.7 Creatinine Kinase MB (Mass) 7.09 H Troponin I 0.164 *H Albumin 2.7 L Triglycerides Level 95 Cholesterol Level 92 L LDL Cholesterol, Calculated 45 HDL Cholesterol 28 L Cholesterol/HDL Ratio 3.2 Medications Medications Current Medications Morphine Sulfate (morphine) 2 mg Q4H PRN IV PAIN Last administered on 02:55; Admin Dose 2 MG; Start 05/25/17 at 22:00 Lorazepam (Ativan) 1 mg Q4H PRN IV AGITATION/ANXIETY Last administered on 02:00; Admin Dose 1 MG; Start 05/26/17 at 01:50 Ondansetron HCl (Zofran Inj) 4 mg Q6H PRN IV NAUSEA AND/OR VOMITING; Start at 04:00 Hydralazine HCl (Apresoline) 10 mg Q6H PRN IV SBP>160; Start 05/27/17 at 12:00 Carvedilol (Coreg) 3.125 mg BID PO Last administered on 05/27/17 20:08; Admin Dose 3.125 MG; Start 05/27/17 at 12:00 Losartan Potassium (Cozaar) 25 mg DAILY PO Last administered on 05/27/17 13:00 ; Admin Dose 25 MG; Start 05/27/17 at 12:00 Aspirin (Halfprin) 81 mg DAILY PO Last administered on 05/28/17 09:46; Admin Dose 81 MG; Start 05/27/17 at 15:30 Kendall Boyd DO May 28, 2017 15:35
--- NOTE | 2017-05-28 17:57 | CONS ---
Date/Time of Note Date/Time of Note DATE: 05/28/17 TIME: 17:56 Assessment/Plan Assessment/Plan Additional Assessment/Plan 1. Left neck, catheter site bleeding 2. Impropre positioning of left Permcath HD catheter s/p Removal on 05/26/17 3. ESRD on HD MWF 4. Anemia multifactorial Chronic renal failure + bleeding 5. Hyperkalemia, uremia due to missed HD 6. 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 8. Diabetes melitus 9. Pulmonary HTN 10.H/o Polycystic Kidney disease causign ESRD onHD Plan: plan for HD today Currently has temporary artur in groin for HD access, Pt currently hemodynamically stable will need Venogram on LUE and replacement of permacath - is on case will follow up Consultation Date/Type/Reason Admit Date/Time May 25, 2017 at 19:39 Initial Consult Date 05/26/17 Type of Consultation: NEPHROLOGY Referring Provider: VASYL GALLO 24 HR Interval Summary Free Text/Dictation plan for HD today Exam/Review of Systems Vital Signs Vitals Vital Signs Date Time Temp Pulse Resp B/P Pulse Ox O2 Delivery O2 Flow Rate FiO2 05/28/17 16:51 72 05/28/17 15:46 98.2 20 135/79 95 05/25/17 20:23 Room Air Intake and Output 05/27/17 05/27/17 05/28/17 15:00 23:00 07:00 Intake Total 800 ml 300 ml Output Total 100 ml Balance 800 ml 200 ml Results Result Diagram: 05/28/17 0625 05/28/17 0625 Results 24 hrs Laboratory Tests Test 05/28/17 06:25 White Blood Count 7.9 Red Blood Count 3.00 L Hemoglobin 7.6 L Hematocrit 24.3 L Mean Corpuscular Volume 81.0 L Mean Corpuscular Hemoglobin 25.3 L Mean Corpuscular Hemoglobin Concent 31.3 L Red Cell Distribution Width 16.0 H Platelet Count 135 L Mean Platelet Volume 11.7 H Neutrophils % 64.3 Lymphocytes % 8.8 L Monocytes % 12.7 H Eosinophils % 13.2 H Basophils % 0.6 Nucleated Red Blood Cells % 0.0 Neutrophils # (Manual) 5.1 Lymphocytes # 0.7 L Monocytes # 1.0 H Eosinophils # 1.1 H Basophils # 0.1 Nucleated Red Blood Cells # 0.0 Sodium Level 142 Potassium Level 4.8 Chloride Level 99 Carbon Dioxide Level 24 Anion Gap 24 H Blood Urea Nitrogen 72 H Creatinine 15.19 H Glucose Level 95 Calcium Level 5.7 *L Phosphorus Level 8.2 H Magnesium Level 1.7 Creatine Kinase 1012 H Creatine Kinase Index 0.7 Creatinine Kinase MB (Mass) 7.09 H Troponin I 0.164 *H Albumin 2.7 L Triglycerides Level 95 Cholesterol Level 92 L LDL Cholesterol, Calculated 45 HDL Cholesterol 28 L Cholesterol/HDL Ratio 3.2 Medications Medications Current Medications Morphine Sulfate (morphine) 2 mg Q4H PRN IV PAIN Last administered on 02:55; Admin Dose 2 MG; Start 05/25/17 at 22:00 Lorazepam (Ativan) 1 mg Q4H PRN IV AGITATION/ANXIETY Last administered on 02:00; Admin Dose 1 MG; Start 05/26/17 at 01:50 Ondansetron HCl (Zofran Inj) 4 mg Q6H PRN IV NAUSEA AND/OR VOMITING; Start at 04:00 Hydralazine HCl (Apresoline) 10 mg Q6H PRN IV SBP>160; Start 05/27/17 at 12:00 Carvedilol (Coreg) 3.125 mg BID PO Last administered on 05/27/17 20:08; Admin Dose 3.125 MG; Start 05/27/17 at 12:00 Losartan Potassium (Cozaar) 25 mg DAILY PO Last administered on 05/27/17 13:00 ; Admin Dose 25 MG; Start 05/27/17 at 12:00 Aspirin (Halfprin) 81 mg DAILY PO Last administered on 05/28/17 09:46; Admin Dose 81 MG; Start 05/27/17 at 15:30 SHAWNA WILHELM MD May 28, 2017 17:57
[2017-05-29] VITALS (13 sets, daily range): BP systolic 123–174; BP diastolic 71–95; PULSE 60–150; RESP 17–20
[2017-05-29 07:05] LABS: BASOPHIL # 0.1 10^3/ul (0.0-0.1); BASOPHILS % 0.9 % (0.0-2.0); EOSINOPHILS # 1.2 10^3/ul (0.0-0.5); EOSINOPHILS % 15.6 % (0.0-7.0); HEMATOCRIT 27.7 % (42.0-52.0); HEMOGLOBIN 8.4 g/dl (14.0-18.0); LYMPHOCYTES # 0.8 10^3/ul (0.8-2.9); LYMPHOCYTES % 10.7 % (15.0-51.0); MEAN CORPUSCULAR HGB CONC 30.3 g/dl (32.0-37.0); MEAN CORPUSCULAR VOLUME 82.4 fl (82.0-101.0); MEAN PLATELET VOLUME 10.3 fl (7.4-10.4); MONOCYTE # 1.1 10^3/ul (0.3-0.9); MONOCYTES % 14.4 % (0.0-11.0); NEUTROPHILS % 57.9 % (39.0-77.0); PLATELET COUNT 127 10^3/UL (140-415); RED BLOOD COUNT 3.36 10^6/ul (4.70-6.10); WHITE BLOOD COUNT 7.8 10^3/ul (4.8-10.8)
[2017-05-29 07:56] LABS: CALCIUM 6.4 mg/dl (8.4-10.2); CREATININE 11.73 mg/dl (0.61-1.24); POTASSIUM 4.2 mmol/L (3.5-5.1)
[2017-05-29] MEDS: LOSARTAN 25 MG TAB PO SCH (09:00)
[2017-05-29] MEDS ORDERED: hydrALAzine 20 MG INJ IV ONE (09:30)
--- NOTE | 2017-05-29 09:32 | CONS ---
Date/Time of Note Date/Time of Note DATE: 05/29/17 TIME: 09:30 Assessment/Plan Assessment/Plan Additional Assessment/Plan 1. Left neck, catheter site bleeding 2. Impropre positioning of left Permcath HD catheter s/p Removal on 05/26/17 3. ESRD on HD MWF 4. Anemia multifactorial Chronic renal failure + bleeding 5. Hyperkalemia, uremia due to missed HD 6. 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 8. Diabetes melitus 9. Pulmonary HTN 10.H/o Polycystic Kidney disease causign ESRD onHD Plan: k 4.2, Hb stable, Left permacath ugarte sbeen removed, currently has right groin artur catheter, S/p HD yesterday Pt currently hemodynamically stable plan for replacement of permacathby will plan for HD today vs tomorrow after catheter replacement will follow up Consultation Date/Type/Reason Admit Date/Time May 25, 2017 at 19:39 Initial Consult Date 05/26/17 Type of Consultation: NEPHROLOGY Referring Provider: VASYL GALLO 24 HR Interval Summary Free Text/Dictation no acute events, plan for replacement of permacath by Exam/Review of Systems Vital Signs Vitals Vital Signs Date Time Temp Pulse Resp B/P Pulse Ox O2 Delivery O2 Flow Rate FiO2 05/29/17 08:55 150 05/29/17 08:12 98.1 17 174/95 96 05/25/17 20:23 Room Air Intake and Output 05/28/17 05/28/17 05/29/17 14:59 22:59 06:59 Intake Total 500 ml Output Total 4500 ml Balance -4000 ml Results Result Diagram: 05/29/17 0639 05/29/17 0639 Results 24 hrs Laboratory Tests Test 05/29/17 06:39 White Blood Count 7.8 Red Blood Count 3.36 L Hemoglobin 8.4 L Hematocrit 27.7 L Mean Corpuscular Volume 82.4 Mean Corpuscular Hemoglobin 25.0 L Mean Corpuscular Hemoglobin Concent 30.3 L Red Cell Distribution Width 16.0 H Platelet Count 127 L Mean Platelet Volume 10.3 Neutrophils % 57.9 Lymphocytes % 10.7 L Monocytes % 14.4 H Eosinophils % 15.6 H Basophils % 0.9 Nucleated Red Blood Cells % 0.0 Neutrophils # (Manual) 4.5 Lymphocytes # 0.8 Monocytes # 1.1 H Eosinophils # 1.2 H Basophils # 0.1 Nucleated Red Blood Cells # 0.0 Sodium Level 148 H Potassium Level 4.2 Chloride Level 103 Carbon Dioxide Level 27 Anion Gap 22 H Blood Urea Nitrogen 48 #H Creatinine 11.73 #H Glucose Level 92 Calcium Level 6.4 L Medications Medications Current Medications Morphine Sulfate (morphine) 2 mg Q4H PRN IV PAIN Last administered on 02:55; Admin Dose 2 MG; Start 05/25/17 at 22:00 Lorazepam (Ativan) 1 mg Q4H PRN IV AGITATION/ANXIETY Last administered on 02:00; Admin Dose 1 MG; Start 05/26/17 at 01:50 Ondansetron HCl (Zofran Inj) 4 mg Q6H PRN IV NAUSEA AND/OR VOMITING; Start at 04:00 Hydralazine HCl (Apresoline) 10 mg Q6H PRN IV SBP>160; Start 05/27/17 at 12:00 Carvedilol (Coreg) 3.125 mg BID PO Last administered on 05/28/17 20:36; Admin Dose 3.125 MG; Start 05/27/17 at 12:00 Losartan Potassium (Cozaar) 25 mg DAILY PO Last administered on 05/27/17 13:00 ; Admin Dose 25 MG; Start 05/27/17 at 12:00 Aspirin (Halfprin) 81 mg DAILY PO Last administered on 05/28/17 09:46; Admin Dose 81 MG; Start 05/27/17 at 15:30 SHAWNA WILHELM MD May 29, 2017 09:32
--- NOTE | 2017-05-29 10:17 | PN ---
Date/Time of Note Date/Time of Note DATE: 05/29/17 TIME: 10:14 Assessment/Plan VTE Prophylaxis VTE Prophylaxis Intervention: ambulation, SCD's Lines/Catheters IV Catheter Type (from Nrsg): Saline Lock Assessment/Plan Chief Complaint/Hosp Course Assessment and plan 1. Malpositioning of hemodialysis catheter. Patient status post emergent removal by vascular surgeon and placement of right femoral vein hemodialysis catheter. Tentative plan for right upper extremity fistulogram and angioplasty and permacath placement 2. Left chest wall pain. Likely secondary to malpositioning of hemodialysis catheter that was previously on the left upper chest side. There is slight troponin elevation but this is also in the setting of renal insufficiency. Monitor trend. Continue with cardiology recommendations. Likely false elevated troponin. 3. Cardiomyopathy with ejection fraction 45%. It is reported that patient was not on any home medications. Market Research Specialist following at this time. Continue optimization with cardiac medications. Continue with professor of music recommendations. 4. Essential hypertension. Continue antihypertensives and adjust as needed. 5. History of end-stage renal disease. On dialysis per pearl diver. 6. Microcytic hypochromic anemia. Likely of chronic disease. Will monitor at this time. stable at present 7. History of atrial fibrillation. Monitor on telemetry. Continue on beta- mat for now. 8. Hypocalcemia. improved post replacement. monitor Disposition and plan: Tentative plan for permacath placement. Will follow up Discussed plan of care with Dr. Costa Problems: Subjective 24 Hr Interval Summary Free Text/Dictation Comfortable at present. No specific complaints. Exam/Review of Systems Vital Signs Vitals Vital Signs Date Time Temp Pulse Resp B/P Pulse Ox O2 Delivery O2 Flow Rate FiO2 05/29/17 08:55 150 05/29/17 08:12 98.1 17 174/95 96 05/25/17 20:23 Room Air Intake and Output 05/28/17 05/28/17 05/29/17 15:00 23:00 07:00 Intake Total 500 ml 400 ml Output Total 4500 ml Balance -4000 ml 400 ml Exam Constitutional: alert, obese, oriented Psych: nl mood/affect Head: normocephalic Neck: supple, No jvd Respiratory: clear to auscultation, normal air movement Cardiovascular: regular rate and rhythm Gastrointestinal: non-tender, soft Extremities: other (malfunctioning av fistula right arm ) Neurological: SQUARING MACHINE OPERATOR II-XII intact, nl mental status, nl speech Skin: other (dialysis catheter right groin ) Results Result Diagram: 05/29/17 0639 05/29/17 0639 Results 24 hrs Laboratory Tests Test 05/29/17 06:39 White Blood Count 7.8 Red Blood Count 3.36 L Hemoglobin 8.4 L Hematocrit 27.7 L Mean Corpuscular Volume 82.4 Mean Corpuscular Hemoglobin 25.0 L Mean Corpuscular Hemoglobin Concent 30.3 L Red Cell Distribution Width 16.0 H Platelet Count 127 L Mean Platelet Volume 10.3 Neutrophils % 57.9 Lymphocytes % 10.7 L Monocytes % 14.4 H Eosinophils % 15.6 H Basophils % 0.9 Nucleated Red Blood Cells % 0.0 Neutrophils # (Manual) 4.5 Lymphocytes # 0.8 Monocytes # 1.1 H Eosinophils # 1.2 H Basophils # 0.1 Nucleated Red Blood Cells # 0.0 Sodium Level 148 H Potassium Level 4.2 Chloride Level 103 Carbon Dioxide Level 27 Anion Gap 22 H Blood Urea Nitrogen 48 #H Creatinine 11.73 #H Glucose Level 92 Calcium Level 6.4 L Medications Medications Current Medications Morphine Sulfate (morphine) 2 mg Q4H PRN IV PAIN Last administered on 02:55; Admin Dose 2 MG; Start 05/25/17 at 22:00 Lorazepam (Ativan) 1 mg Q4H PRN IV AGITATION/ANXIETY Last administered on 02:00; Admin Dose 1 MG; Start 05/26/17 at 01:50 Ondansetron HCl (Zofran Inj) 4 mg Q6H PRN IV NAUSEA AND/OR VOMITING; Start at 04:00 Hydralazine HCl (Apresoline) 10 mg Q6H PRN IV SBP>160; Start 05/27/17 at 12:00 Carvedilol (Coreg) 3.125 mg BID PO Last administered on 05/28/17 20:36; Admin Dose 3.125 MG; Start 05/27/17 at 12:00 Losartan Potassium (Cozaar) 25 mg DAILY PO Last administered on 05/27/17 13:00 ; Admin Dose 25 MG; Start 05/27/17 at 12:00 Aspirin (Halfprin) 81 mg DAILY PO Last administered on 05/28/17 09:46; Admin Dose 81 MG; Start 05/27/17 at 15:30 RUSSELL JENSEN May 29, 2017 10:17
--- NOTE | 2017-05-29 13:12 | CONS ---
Date/Time of Note Date/Time of Note DATE: 05/29/17 TIME: 13:11 Assessment/Plan Assessment/Plan Additional Assessment/Plan Chest wall pain, resolved Cardiomyopathy with ejection fraction 45% History of paroxysmal fibrillation status post cardioversion, noncompliant with anticoagulation End-stage renal disease on hemodialysis -PO medications currently on hold given patient plan for possible procedure today. Fluid management via hemodialysis as per our nephrology colleagues. Consultation Date/Type/Reason Admit Date/Time May 25, 2017 at 19:39 Initial Consult Date 05/26/17 Type of Consultation: cv Referring Provider: VASYL GALLO 24 HR Interval Summary Free Text/Dictation Denies shortness of breath, palpitations or chest pain Exam/Review of Systems Vital Signs Vitals Vital Signs Date Time Temp Pulse Resp B/P Pulse Ox O2 Delivery O2 Flow Rate FiO2 05/29/17 12:11 97 05/29/17 12:06 97.8 18 123/84 98 05/25/17 20:23 Room Air Intake and Output 05/28/17 05/28/17 05/29/17 15:00 23:00 07:00 Intake Total 500 ml 400 ml Output Total 4500 ml Balance -4000 ml 400 ml Exam No apparent distress Constitutional: alert, obese, oriented Head: normocephalic Respiratory: other (Coarse breath sounds bilaterally, no wheezing) Cardiovascular: other (S1-S2 heard), regular rate and rhythm Gastrointestinal: bowel sounds, non-tender, soft Extremities: edema Results Result Diagram: 05/29/17 0639 05/29/17 0639 Results 24 hrs Laboratory Tests Test 05/29/17 06:39 White Blood Count 7.8 Red Blood Count 3.36 L Hemoglobin 8.4 L Hematocrit 27.7 L Mean Corpuscular Volume 82.4 Mean Corpuscular Hemoglobin 25.0 L Mean Corpuscular Hemoglobin Concent 30.3 L Red Cell Distribution Width 16.0 H Platelet Count 127 L Mean Platelet Volume 10.3 Neutrophils % 57.9 Lymphocytes % 10.7 L Monocytes % 14.4 H Eosinophils % 15.6 H Basophils % 0.9 Nucleated Red Blood Cells % 0.0 Neutrophils # (Manual) 4.5 Lymphocytes # 0.8 Monocytes # 1.1 H Eosinophils # 1.2 H Basophils # 0.1 Nucleated Red Blood Cells # 0.0 Sodium Level 148 H Potassium Level 4.2 Chloride Level 103 Carbon Dioxide Level 27 Anion Gap 22 H Blood Urea Nitrogen 48 #H Creatinine 11.73 #H Glucose Level 92 Calcium Level 6.4 L Medications Medications Current Medications Morphine Sulfate (morphine) 2 mg Q4H PRN IV PAIN Last administered on 02:55; Admin Dose 2 MG; Start 05/25/17 at 22:00 Lorazepam (Ativan) 1 mg Q4H PRN IV AGITATION/ANXIETY Last administered on 02:00; Admin Dose 1 MG; Start 05/26/17 at 01:50 Ondansetron HCl (Zofran Inj) 4 mg Q6H PRN IV NAUSEA AND/OR VOMITING; Start at 04:00 Hydralazine HCl (Apresoline) 10 mg Q6H PRN IV SBP>160; Start 05/27/17 at 12:00 Carvedilol (Coreg) 3.125 mg BID PO Last administered on 05/28/17 20:36; Admin Dose 3.125 MG; Start 05/27/17 at 12:00 Losartan Potassium (Cozaar) 25 mg DAILY PO Last administered on 05/27/17 13:00 ; Admin Dose 25 MG; Start 05/27/17 at 12:00 Aspirin (Halfprin) 81 mg DAILY PO Last administered on 05/28/17 09:46; Admin Dose 81 MG; Start 05/27/17 at 15:30 Kendall Boyd DO May 29, 2017 13:12
[2017-05-30] VITALS (19 sets, daily range): BP systolic 122–175; BP diastolic 62–88; PULSE 65–95; RESP 16–20
[2017-05-30 08:09] LABS: BASOPHIL # 0.1 10^3/ul (0.0-0.1); EOSINOPHILS # 1.9 10^3/ul (0.0-0.5); EOSINOPHILS % 19.4 % (0.0-7.0); HEMATOCRIT 27.5 % (42.0-52.0); HEMOGLOBIN 8.3 g/dl (14.0-18.0); LYMPHOCYTES # 1.3 10^3/ul (0.8-2.9); LYMPHOCYTES % 13.6 % (15.0-51.0); MEAN CORPUSCULAR HEMOGLOBIN 24.6 pg (29.0-33.0); MEAN CORPUSCULAR HGB CONC 30.2 g/dl (32.0-37.0); MEAN CORPUSCULAR VOLUME 81.6 fl (82.0-101.0); MEAN PLATELET VOLUME 11.1 fl (7.4-10.4); MONOCYTE # 1.1 10^3/ul (0.3-0.9); NEUTROPHILS % 54.5 % (39.0-77.0); PLATELET COUNT 168 10^3/UL (140-415); RED BLOOD COUNT 3.37 10^6/ul (4.70-6.10); RED CELL DISTRIBUTION WIDTH 16.3 % (11.5-14.5); WHITE BLOOD COUNT 9.8 10^3/ul (4.8-10.8)
[2017-05-30 08:55] LABS: CALCIUM 6.4 mg/dl (8.4-10.2); CREATININE 12.71 mg/dl (0.61-1.24); POTASSIUM 4.6 mmol/L (3.5-5.1)
[2017-05-30] MEDS: ASPIRIN (EC) 81 MG TAB PO SCH (09:24)
[2017-05-30] MEDS: LOSARTAN 25 MG TAB PO SCH (09:24)
--- NOTE | 2017-05-30 12:21 | CONS ---
Date/Time of Note Date/Time of Note DATE: 05/30/17 TIME: 12:20 Assessment/Plan Assessment/Plan Additional Assessment/Plan Chest wall pain, resolved Cardiomyopathy with ejection fraction 45% History of paroxysmal fibrillation status post cardioversion, noncompliant with anticoagulation End-stage renal disease on hemodialysis -Patient status post hemodialysis today with improvement in blood pressure. Awaiting dialysis catheter change. No new cardiac orders at the current time. Consultation Date/Type/Reason Admit Date/Time May 25, 2017 at 19:39 Initial Consult Date 05/26/17 Type of Consultation: cv Referring Provider: VASYL GALLO 24 HR Interval Summary Free Text/Dictation Denies shortness of breath, palpitations or dizziness Exam/Review of Systems Vital Signs Vitals Vital Signs Date Time Temp Pulse Resp B/P Pulse Ox O2 Delivery O2 Flow Rate FiO2 05/30/17 12:09 97.5 81 17 137/69 99 Intake and Output 05/29/17 05/29/17 05/30/17 15:00 23:00 07:00 Intake Total 900 ml Balance 900 ml Exam No apparent distress Constitutional: alert, obese, oriented Head: normocephalic Respiratory: other (Coarse breath sounds bilaterally, no wheezing) Cardiovascular: other (S1-S2 heard), regular rate and rhythm Gastrointestinal: bowel sounds, non-tender, soft Extremities: edema Results Result Diagram: 05/30/17 0702 05/30/17 0702 Results 24 hrs Laboratory Tests Test 05/30/17 07:02 White Blood Count 9.8 # Red Blood Count 3.37 L Hemoglobin 8.3 L Hematocrit 27.5 L Mean Corpuscular Volume 81.6 L Mean Corpuscular Hemoglobin 24.6 L Mean Corpuscular Hemoglobin Concent 30.2 L Red Cell Distribution Width 16.3 H Platelet Count 168 # Mean Platelet Volume 11.1 H Neutrophils % 54.5 Lymphocytes % 13.6 L Monocytes % 11.0 Eosinophils % 19.4 H Basophils % 1.0 Nucleated Red Blood Cells % 0.0 Neutrophils # (Manual) 5.3 Lymphocytes # 1.3 Monocytes # 1.1 H Eosinophils # 1.9 H Basophils # 0.1 Nucleated Red Blood Cells # 0.0 Sodium Level 147 H Potassium Level 4.6 Chloride Level 102 Carbon Dioxide Level 25 Anion Gap 25 H Blood Urea Nitrogen 57 H Creatinine 12.71 H Glucose Level 88 Calcium Level 6.4 L Medications Medications Current Medications Morphine Sulfate (morphine) 2 mg Q4H PRN IV PAIN Last administered on 02:55; Admin Dose 2 MG; Start 05/25/17 at 22:00 Lorazepam (Ativan) 1 mg Q4H PRN IV AGITATION/ANXIETY Last administered on 02:00; Admin Dose 1 MG; Start 05/26/17 at 01:50 Ondansetron HCl (Zofran Inj) 4 mg Q6H PRN IV NAUSEA AND/OR VOMITING; Start at 04:00 Hydralazine HCl (Apresoline) 10 mg Q6H PRN IV SBP>160; Start 05/27/17 at 12:00 Carvedilol (Coreg) 3.125 mg BID PO Last administered on 05/30/17 09:24; Admin Dose 3.125 MG; Start 05/27/17 at 12:00 Losartan Potassium (Cozaar) 25 mg DAILY PO Last administered on 05/30/17 09:24 ; Admin Dose 25 MG; Start 05/27/17 at 12:00 Aspirin (Halfprin) 81 mg DAILY PO Last administered on 05/30/17 09:24; Admin Dose 81 MG; Start 05/27/17 at 15:30 Kendall Boyd DO May 30, 2017 12:21
--- NOTE | 2017-05-30 13:18 | PN ---
Date/Time of Note Date/Time of Note DATE: 05/30/17 TIME: 13:16 Assessment/Plan VTE Prophylaxis VTE Prophylaxis Intervention: SCD's Lines/Catheters IV Catheter Type (from Nrs): Saline Lock Assessment/Plan Chief Complaint/Hosp Course Assessment and plan 1. Malpositioning of hemodialysis catheter. Patient status post emergent removal by vascular surgeon and placement of right femoral vein hemodialysis catheter. Tentative plan for right upper extremity fistulogram and angioplasty and permacath placement 2. Left chest wall pain. Likely secondary to malpositioning of hemodialysis catheter that was previously on the left upper chest side. There is slight troponin elevation but this is also in the setting of renal insufficiency. Monitor trend. Continue with cardiology recommendations. Likely false elevated troponin. 3. Cardiomyopathy with ejection fraction 45%. It is reported that patient was not on any home medications. Tire Rebuilder following at this time. Continue optimization with cardiac medications. Continue with bench assembler operator recommendations. stable 4. Essential hypertension. Continue antihypertensives and adjust as needed. hydralazine prn for sbp>160 5. History of end-stage renal disease. On dialysis per chimney builder. 6. Microcytic hypochromic anemia. Likely of chronic disease. Will monitor at this time. stable at present 7. History of atrial fibrillation. Monitor on telemetry. Continue on beta- mat for now. 8. Hypocalcemia. improved post replacement. monitor Disposition and plan: Awaiting permacath placement. follow up with vascular surgeon input Discussed plan of care with Dr. Costa Problems: Subjective 24 Hr Interval Summary Free Text/Dictation no reports of chest pain. no specific complaints. Exam/Review of Systems Vital Signs Vitals Vital Signs Date Time Temp Pulse Resp B/P Pulse Ox O2 Delivery O2 Flow Rate FiO2 05/30/17 12:09 97.5 81 17 137/69 99 Intake and Output 05/29/17 05/29/17 05/30/17 14:59 22:59 06:59 Intake Total 400 ml 900 ml Balance 400 ml 900 ml Exam Constitutional: alert, obese, oriented Psych: nl mood/affect Head: normocephalic Neck: supple, No jvd Respiratory: clear to auscultation, normal air movement Cardiovascular: regular rate and rhythm Gastrointestinal: non-tender, soft Extremities: other (malfunctioning av fistula right arm ) Neurological: AIRCRAFT MAGNETO MECHANIC II-XII intact, nl mental status, nl speech Skin: other (dialysis catheter right groin ) Results Result Diagram: 05/30/17 0702 05/30/17 0702 Results 24 hrs Laboratory Tests Test 05/30/17 07:02 White Blood Count 9.8 # Red Blood Count 3.37 L Hemoglobin 8.3 L Hematocrit 27.5 L Mean Corpuscular Volume 81.6 L Mean Corpuscular Hemoglobin 24.6 L Mean Corpuscular Hemoglobin Concent 30.2 L Red Cell Distribution Width 16.3 H Platelet Count 168 # Mean Platelet Volume 11.1 H Neutrophils % 54.5 Lymphocytes % 13.6 L Monocytes % 11.0 Eosinophils % 19.4 H Basophils % 1.0 Nucleated Red Blood Cells % 0.0 Neutrophils # (Manual) 5.3 Lymphocytes # 1.3 Monocytes # 1.1 H Eosinophils # 1.9 H Basophils # 0.1 Nucleated Red Blood Cells # 0.0 Sodium Level 147 H Potassium Level 4.6 Chloride Level 102 Carbon Dioxide Level 25 Anion Gap 25 H Blood Urea Nitrogen 57 H Creatinine 12.71 H Glucose Level 88 Calcium Level 6.4 L Medications Medications Current Medications Morphine Sulfate (morphine) 2 mg Q4H PRN IV PAIN Last administered on 02:55; Admin Dose 2 MG; Start 05/25/17 at 22:00 Lorazepam (Ativan) 1 mg Q4H PRN IV AGITATION/ANXIETY Last administered on 02:00; Admin Dose 1 MG; Start 05/26/17 at 01:50 Ondansetron HCl (Zofran Inj) 4 mg Q6H PRN IV NAUSEA AND/OR VOMITING; Start at 04:00 Hydralazine HCl (Apresoline) 10 mg Q6H PRN IV SBP>160; Start 05/27/17 at 12:00 Carvedilol (Coreg) 3.125 mg BID PO Last administered on 05/30/17 09:24; Admin Dose 3.125 MG; Start 05/27/17 at 12:00 Losartan Potassium (Cozaar) 25 mg DAILY PO Last administered on 05/30/17 09:24 ; Admin Dose 25 MG; Start 05/27/17 at 12:00 Aspirin (Halfprin) 81 mg DAILY PO Last administered on 05/30/17 09:24; Admin Dose 81 MG; Start 05/27/17 at 15:30 RUSSELL JENSEN May 30, 2017 13:18
--- NOTE | 2017-05-30 17:03 | CONS ---
Date/Time of Note Date/Time of Note DATE: 05/30/17 TIME: 17:00 Assessment/Plan Assessment/Plan Additional Assessment/Plan 1. Left neck, catheter site bleeding- stopped after removal of catheter 2. Impropre positioning of left Permcath HD catheter s/p Removal on 05/26/17 3. ESRD on HD MWF 4. Anemia multifactorial Chronic renal failure + bleeding 5. Hyperkalemia, uremia due to missed HD 6. 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 8. Diabetes melitus 9. Pulmonary HTN 10.H/o Polycystic Kidney disease causign ESRD onHD Plan: k 4.6, Hb 8.3, Left permacath ugarte sbeen removed, currently has right groin artur catheter, S/p HD today 3.5 L removed Pt currently hemodynamically stable plan for replacement of permacathby possibly tomorrow. will plan for HD tomorrow after catheter replacement will follow up Consultation Date/Type/Reason Admit Date/Time May 25, 2017 at 19:39 Initial Consult Date 05/26/17 Type of Consultation: NEPHROLOGY Referring Provider: VASYL GALLO 24 HR Interval Summary Free Text/Dictation s/p HD today 3.5 L removed, Bp stable, plan for permacath tomorrow Exam/Review of Systems Vital Signs Vitals Vital Signs Date Time Temp Pulse Resp B/P Pulse Ox O2 Delivery O2 Flow Rate FiO2 05/30/17 16:28 97.9 79 18 128/72 98 Intake and Output 05/29/17 05/29/17 05/30/17 15:00 23:00 07:00 Intake Total 900 ml Balance 900 ml Exam Constitutional: alert Psych: no complaints Head: normocephalic Eyes: nl conjunctiva ENMT: nl external ears & nose Neck: other (left neck swelling with ecchymoses ), supple Respiratory: clear to auscultation, normal air movement Cardiovascular: nl pulses, regular rate and rhythm Gastrointestinal: non-tender, soft Musculoskeletal: nl extremities to inspection, nl gait and stance Extremities: normal pulses, other (Groin HD catheter) Neurological: WASTEWATER TREATMENT PLANT OPERATOR II-XII intact Skin: nl turgor Lymph: nl lymph nodes Results Result Diagram: 05/30/17 0702 05/30/17 0702 Results 24 hrs Laboratory Tests Test 05/30/17 07:02 White Blood Count 9.8 # Red Blood Count 3.37 L Hemoglobin 8.3 L Hematocrit 27.5 L Mean Corpuscular Volume 81.6 L Mean Corpuscular Hemoglobin 24.6 L Mean Corpuscular Hemoglobin Concent 30.2 L Red Cell Distribution Width 16.3 H Platelet Count 168 # Mean Platelet Volume 11.1 H Neutrophils % 54.5 Lymphocytes % 13.6 L Monocytes % 11.0 Eosinophils % 19.4 H Basophils % 1.0 Nucleated Red Blood Cells % 0.0 Neutrophils # (Manual) 5.3 Lymphocytes # 1.3 Monocytes # 1.1 H Eosinophils # 1.9 H Basophils # 0.1 Nucleated Red Blood Cells # 0.0 Sodium Level 147 H Potassium Level 4.6 Chloride Level 102 Carbon Dioxide Level 25 Anion Gap 25 H Blood Urea Nitrogen 57 H Creatinine 12.71 H Glucose Level 88 Calcium Level 6.4 L Medications Medications Current Medications Morphine Sulfate (morphine) 2 mg Q4H PRN IV PAIN Last administered on 02:55; Admin Dose 2 MG; Start 05/25/17 at 22:00 Lorazepam (Ativan) 1 mg Q4H PRN IV AGITATION/ANXIETY Last administered on 02:00; Admin Dose 1 MG; Start 05/26/17 at 01:50 Ondansetron HCl (Zofran Inj) 4 mg Q6H PRN IV NAUSEA AND/OR VOMITING; Start at 04:00 Hydralazine HCl (Apresoline) 10 mg Q6H PRN IV SBP>160; Start 05/27/17 at 12:00 Carvedilol (Coreg) 3.125 mg BID PO Last administered on 05/30/17 09:24; Admin Dose 3.125 MG; Start 05/27/17 at 12:00 Losartan Potassium (Cozaar) 25 mg DAILY PO Last administered on 05/30/17 09:24 ; Admin Dose 25 MG; Start 05/27/17 at 12:00 Aspirin (Halfprin) 81 mg DAILY PO Last administered on 05/30/17 09:24; Admin Dose 81 MG; Start 05/27/17 at 15:30 SHAWNA WILHELM MD May 30, 2017 17:03
[2017-05-31] VITALS (12 sets, daily range): BP systolic 115–144; BP diastolic 65–89; PULSE 63–97; RESP 16–19
[2017-05-31 07:45] LABS: BASOPHIL # 0.1 10^3/ul (0.0-0.1); BASOPHILS % 0.9 % (0.0-2.0); EOSINOPHILS # 1.8 10^3/ul (0.0-0.5); EOSINOPHILS % 18.9 % (0.0-7.0); HEMATOCRIT 27.4 % (42.0-52.0); HEMOGLOBIN 8.2 g/dl (14.0-18.0); LYMPHOCYTES # 1.4 10^3/ul (0.8-2.9); LYMPHOCYTES % 15.3 % (15.0-51.0); MEAN CORPUSCULAR HEMOGLOBIN 24.8 pg (29.0-33.0); MEAN CORPUSCULAR HGB CONC 29.9 g/dl (32.0-37.0); MEAN CORPUSCULAR VOLUME 82.8 fl (82.0-101.0); MEAN PLATELET VOLUME 11.6 fl (7.4-10.4); MONOCYTE # 1.1 10^3/ul (0.3-0.9); MONOCYTES % 12.1 % (0.0-11.0); NEUTROPHILS % 52.6 % (39.0-77.0); PLATELET COUNT 145 10^3/UL (140-415); RED BLOOD COUNT 3.31 10^6/ul (4.70-6.10); RED CELL DISTRIBUTION WIDTH 16.1 % (11.5-14.5); WHITE BLOOD COUNT 9.4 10^3/ul (4.8-10.8)
[2017-05-31 08:19] LABS: CALCIUM 6.8 mg/dl (8.4-10.2); CREATININE 10.41 mg/dl (0.61-1.24); POTASSIUM 4.4 mmol/L (3.5-5.1)
[2017-05-31] MEDS: LOSARTAN 25 MG TAB PO SCH (08:57)
[2017-05-31] MEDS: ASPIRIN (EC) 81 MG TAB PO SCH (08:57)
--- NOTE | 2017-05-31 09:19 | CONS ---
Date/Time of Note Date/Time of Note DATE: 05/31/17 TIME: 09:17 Assessment/Plan Assessment/Plan Additional Assessment/Plan 1. Left neck, catheter site bleeding- stopped after removal of catheter 2. Impropre positioning of left Permcath HD catheter s/p Removal on 05/26/17 3. ESRD on HD MWF 4. Anemia multifactorial Chronic renal failure + bleeding 5. Hyperkalemia, uremia due to missed HD 6. 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 8. Diabetes melitus 9. Pulmonary HTN 10.H/o Polycystic Kidney disease causign ESRD onHD Plan: k 4.4, Hb 8.2, Left permacath ugarte sbeen removed, currently has right groin artur catheter, S/p HD yesterday 3.5 L removed Pt currently hemodynamically stable plan for replacement of permacathby possibly today by will plan for HD tomorrow after catheter replacement - pt regular schedule for HD is Sunday, sunday and Sunday will follow up Consultation Date/Type/Reason Admit Date/Time May 25, 2017 at 19:39 Initial Consult Date 05/26/17 Type of Consultation: NEPHROLOGY Referring Provider: VASYL GALLO 24 HR Interval Summary Free Text/Dictation plan for permacath placement, today, K normal, Still has groin catheter Exam/Review of Systems Vital Signs Vitals Vital Signs Date Time Temp Pulse Resp B/P Pulse Ox O2 Delivery O2 Flow Rate FiO2 05/31/17 08:15 82 05/31/17 07:53 98.3 19 122/77 98 Intake and Output 05/30/17 05/30/17 05/31/17 15:00 23:00 07:00 Intake Total 1000 ml 950 ml 550 ml Output Total 4000 ml 3000 ml Balance -3000 ml -2050 ml 550 ml Exam Constitutional: alert Psych: no complaints Head: normocephalic Eyes: nl conjunctiva ENMT: nl external ears & nose Neck: non-tender, supple Respiratory: clear to auscultation, diminished breath sounds, normal air movement Cardiovascular: nl pulses, regular rate and rhythm Gastrointestinal: non-tender, soft Musculoskeletal: nl extremities to inspection, nl gait and stance, other ( Right groin artur ) Neurological: AUTO RENTAL CLERK II-XII intact Skin: nl turgor Lymph: nl lymph nodes Results Result Diagram: 05/31/17 0701 05/31/17 0701 Results 24 hrs Laboratory Tests Test 05/31/17 07:01 White Blood Count 9.4 Red Blood Count 3.31 L Hemoglobin 8.2 L Hematocrit 27.4 L Mean Corpuscular Volume 82.8 Mean Corpuscular Hemoglobin 24.8 L Mean Corpuscular Hemoglobin Concent 29.9 L Red Cell Distribution Width 16.1 H Platelet Count 145 Mean Platelet Volume 11.6 H Neutrophils % 52.6 Lymphocytes % 15.3 Monocytes % 12.1 H Eosinophils % 18.9 H Basophils % 0.9 Nucleated Red Blood Cells % 0.0 Neutrophils # (Manual) 4.9 Lymphocytes # 1.4 Monocytes # 1.1 H Eosinophils # 1.8 H Basophils # 0.1 Nucleated Red Blood Cells # 0.0 Sodium Level 146 H Potassium Level 4.4 Chloride Level 101 Carbon Dioxide Level 27 Anion Gap 22 H Blood Urea Nitrogen 44 #H Creatinine 10.41 #H Glucose Level 86 Calcium Level 6.8 L Medications Medications Current Medications Morphine Sulfate (morphine) 2 mg Q4H PRN IV PAIN Last administered on 02:55; Admin Dose 2 MG; Start 05/25/17 at 22:00 Lorazepam (Ativan) 1 mg Q4H PRN IV AGITATION/ANXIETY Last administered on 02:00; Admin Dose 1 MG; Start 05/26/17 at 01:50 Ondansetron HCl (Zofran Inj) 4 mg Q6H PRN IV NAUSEA AND/OR VOMITING; Start at 04:00 Hydralazine HCl (Apresoline) 10 mg Q6H PRN IV SBP>160; Start 05/27/17 at 12:00 Carvedilol (Coreg) 3.125 mg BID PO Last administered on 05/31/17 08:57; Admin Dose 3.125 MG; Start 05/27/17 at 12:00 Losartan Potassium (Cozaar) 25 mg DAILY PO Last administered on 05/31/17 08:57 ; Admin Dose 25 MG; Start 05/27/17 at 12:00 Aspirin (Halfprin) 81 mg DAILY PO Last administered on 05/31/17 08:57; Admin Dose 81 MG; Start 05/27/17 at 15:30 SHAWNA WILHELM MD May 31, 2017 09:19
--- NOTE | 2017-05-31 11:36 | PN ---
Date/Time of Note Date/Time of Note DATE: 05/31/17 TIME: 11:34 Assessment/Plan VTE Prophylaxis VTE Prophylaxis Intervention: SCD's Lines/Catheters IV Catheter Type (from Nrs): Saline Lock Assessment/Plan Chief Complaint/Hosp Course Assessment and plan 1. Malpositioning of hemodialysis catheter. Patient status post emergent removal by vascular surgeon and placement of right femoral vein hemodialysis catheter. Tentative plan for right upper extremity fistulogram and angioplasty and permacath placement today 2. Left chest wall pain. Likely secondary to malpositioning of hemodialysis catheter that was previously on the left upper chest side. There is slight troponin elevation but this is also in the setting of renal insufficiency. Monitor trend. Continue with cardiology recommendations. Likely false elevated troponin. 3. Cardiomyopathy with ejection fraction 45%. It is reported that patient was not on any home medications. Rn Documentation following at this time. Continue optimization with cardiac medications. Continue with pile driving technician recommendations. stable 4. Essential hypertension. Continue antihypertensives and adjust as needed. hydralazine prn for sbp>160 5. History of end-stage renal disease. On dialysis per [facility]. 6. Microcytic hypochromic anemia. Likely of chronic disease. Will monitor at this time. stable at present 7. History of atrial fibrillation. Monitor on telemetry. Continue on beta- mat for now. 8. Hypocalcemia. improved post replacement. monitor Disposition and plan: Plan for permacath placement today Discussed plan of care with Dr. Costa Problems: Subjective 24 Hr Interval Summary Free Text/Dictation no s/s of distress. comfortable at this time Exam/Review of Systems Vital Signs Vitals Vital Signs Date Time Temp Pulse Resp B/P Pulse Ox O2 Delivery O2 Flow Rate FiO2 05/31/17 08:15 82 05/31/17 07:53 98.3 19 122/77 98 Intake and Output 05/30/17 05/30/17 05/31/17 14:59 22:59 06:59 Intake Total 1000 ml 950 ml 550 ml Output Total 4000 ml 3000 ml Balance -3000 ml -2050 ml 550 ml Exam Constitutional: alert, obese, oriented Psych: nl mood/affect Head: normocephalic Neck: supple, No jvd Respiratory: clear to auscultation, normal air movement Cardiovascular: regular rate and rhythm Gastrointestinal: non-tender, soft Extremities: other (malfunctioning av fistula right arm ) Neurological: PROFESSOR OF MEDICINE II-XII intact, nl mental status, nl speech Skin: other (dialysis catheter right groin ) Results Result Diagram: 05/31/17 0701 05/31/17 0701 Results 24 hrs Laboratory Tests Test 05/31/17 07:01 05/31/17 09:49 White Blood Count 9.4 Red Blood Count 3.31 L Hemoglobin 8.2 L Hematocrit 27.4 L Mean Corpuscular Volume 82.8 Mean Corpuscular Hemoglobin 24.8 L Mean Corpuscular Hemoglobin Concent 29.9 L Red Cell Distribution Width 16.1 H Platelet Count 145 Mean Platelet Volume 11.6 H Neutrophils % 52.6 Lymphocytes % 15.3 Monocytes % 12.1 H Eosinophils % 18.9 H Basophils % 0.9 Nucleated Red Blood Cells % 0.0 Neutrophils # (Manual) 4.9 Lymphocytes # 1.4 Monocytes # 1.1 H Eosinophils # 1.8 H Basophils # 0.1 Nucleated Red Blood Cells # 0.0 Sodium Level 146 H Potassium Level 4.4 Chloride Level 101 Carbon Dioxide Level 27 Anion Gap 22 H Blood Urea Nitrogen 44 #H Creatinine 10.41 #H Glucose Level 86 Calcium Level 6.8 L Lab Scanned Report REFERENCE LAB Medications Medications Current Medications Morphine Sulfate (morphine) 2 mg Q4H PRN IV PAIN Last administered on 02:55; Admin Dose 2 MG; Start 05/25/17 at 22:00 Lorazepam (Ativan) 1 mg Q4H PRN IV AGITATION/ANXIETY Last administered on 02:00; Admin Dose 1 MG; Start 05/26/17 at 01:50 Ondansetron HCl (Zofran Inj) 4 mg Q6H PRN IV NAUSEA AND/OR VOMITING; Start at 04:00 Hydralazine HCl (Apresoline) 10 mg Q6H PRN IV SBP>160; Start 05/27/17 at 12:00 Carvedilol (Coreg) 3.125 mg BID PO Last administered on 05/31/17 08:57; Admin Dose 3.125 MG; Start 05/27/17 at 12:00 Losartan Potassium (Cozaar) 25 mg DAILY PO Last administered on 05/31/17 08:57 ; Admin Dose 25 MG; Start 05/27/17 at 12:00 Aspirin (Halfprin) 81 mg DAILY PO Last administered on 05/31/17t 08:57; Admin Dose 81 MG; Start 05/27/17 at 15:30 RUSSELL JENSEN May 31, 2017 11:36
--- NOTE | 2017-05-31 13:31 | CONS ---
Date/Time of Note Date/Time of Note DATE: 05/31/17 TIME: 13:30 Assessment/Plan Assessment/Plan Additional Assessment/Plan Chest wall pain, resolved Cardiomyopathy with ejection fraction 45% History of paroxysmal fibrillation status post cardioversion, noncompliant with anticoagulation End-stage renal disease on hemodialysis -Blood pressure trend overall stable. Fluid management via hemodialysis as per our nephrology colleagues. Awaiting hemodialysis catheter Consultation Date/Type/Reason Admit Date/Time May 25, 2017 at 19:39 Initial Consult Date 05/26/17 Type of Consultation: cv Referring Provider: VASYL GALLO 24 HR Interval Summary Free Text/Dictation Denies shortness of breath, palpitations or dizziness Exam/Review of Systems Vital Signs Vitals Vital Signs Date Time Temp Pulse Resp B/P Pulse Ox O2 Delivery O2 Flow Rate FiO2 05/31/17 12:09 98.1 70 19 136/70 98 Intake and Output 05/30/17 05/30/17 05/31/17 15:00 23:00 07:00 Intake Total 1000 ml 950 ml 550 ml Output Total 4000 ml 3000 ml Balance -3000 ml -2050 ml 550 ml Exam No apparent distress Constitutional: alert, obese, oriented Head: normocephalic Respiratory: other (Coarse breath sounds bilaterally, no wheezing) Cardiovascular: other (S1-S2 heard), regular rate and rhythm Gastrointestinal: bowel sounds, non-tender, soft Extremities: edema Results Result Diagram: 05/31/17 0701 05/31/17 0701 Results 24 hrs Laboratory Tests Test 05/31/17 07:01 05/31/17 09:49 White Blood Count 9.4 Red Blood Count 3.31 L Hemoglobin 8.2 L Hematocrit 27.4 L Mean Corpuscular Volume 82.8 Mean Corpuscular Hemoglobin 24.8 L Mean Corpuscular Hemoglobin Concent 29.9 L Red Cell Distribution Width 16.1 H Platelet Count 145 Mean Platelet Volume 11.6 H Neutrophils % 52.6 Lymphocytes % 15.3 Monocytes % 12.1 H Eosinophils % 18.9 H Basophils % 0.9 Nucleated Red Blood Cells % 0.0 Neutrophils # (Manual) 4.9 Lymphocytes # 1.4 Monocytes # 1.1 H Eosinophils # 1.8 H Basophils # 0.1 Nucleated Red Blood Cells # 0.0 Sodium Level 146 H Potassium Level 4.4 Chloride Level 101 Carbon Dioxide Level 27 Anion Gap 22 H Blood Urea Nitrogen 44 #H Creatinine 10.41 #H Glucose Level 86 Calcium Level 6.8 L Lab Scanned Report REFERENCE LAB Medications Medications Current Medications Morphine Sulfate (morphine) 2 mg Q4H PRN IV PAIN Last administered on 02:55; Admin Dose 2 MG; Start 05/25/17 at 22:00 Lorazepam (Ativan) 1 mg Q4H PRN IV AGITATION/ANXIETY Last administered on 02:00; Admin Dose 1 MG; Start 05/26/17 at 01:50 Ondansetron HCl (Zofran Inj) 4 mg Q6H PRN IV NAUSEA AND/OR VOMITING; Start at 04:00 Hydralazine HCl (Apresoline) 10 mg Q6H PRN IV SBP>160; Start 05/27/17 at 12:00 Carvedilol (Coreg) 3.125 mg BID PO Last administered on 05/31/17 08:57; Admin Dose 3.125 MG; Start 05/27/17 at 12:00 Losartan Potassium (Cozaar) 25 mg DAILY PO Last administered on 05/31/17 08:57 ; Admin Dose 25 MG; Start 05/27/17 at 12:00 Aspirin (Halfprin) 81 mg DAILY PO Last administered on 05/31/17 08:57; Admin Dose 81 MG; Start 05/27/17 at 15:30 Kendall Boyd DO May 31, 2017 13:31
[2017-05-31] MEDS ORDERED: HEPARIN 1000 UNITS/NS (A-LINE) 1,000 ML ONE (17:07)
[2017-05-31] MEDS ORDERED: LIDOCAINE 1% (MDV) 20 ML INJ ONE (17:07)
[2017-05-31] MEDS ORDERED: MIDAZOLAM 1 MG/ML 2 ML INJ ONE (17:08)
[2017-05-31] MEDS ORDERED: FENTAnyl 50 MCG/ML VIAL ONE ×2 (17:08→18:24)
[2017-05-31] MEDS ORDERED: HEPARIN 1000 UNITS/ML 10 ML INJ ONE (18:36)
--- NOTE | 2017-05-31 18:54 | OPR ---
Date/Time of Note Date/Time of Note DATE: 05/31/17 TIME: 18:53 Operative Report Procedure Date: May 26, 2017 Preoperative Diagnosis ESRD Postoperative Diagnosis ESRD Operation Performed Left fem permcath Surgeon: ZOIE GOLDMAN MD Anesthesia Type: MAC, other Estimated Blood Loss: none Transfusion Required: no Complications: no Pt Condition Post Procedure: critical Indications dictated Operative\Procedure Findings dictated Procedure Description dictated ZOIE GOLDMAN MD May 31, 2017 18:54
--- NOTE | 2017-05-31 20:20 | OPR ---
DATE OF OPERATION: 05/31/2017 PREOPERATIVE DIAGNOSIS: Renal failure. POSTOPERATIVE DIAGNOSIS: Renal failure. OPERATION PERFORMED: 1. Left femoral Perma catheter placement. 2. Superior vena cavogram. 3. Catheter introduction to the superior vena cava. 4. Interpretation of superior vena cavogram. 5. Ultrasound guidance into the central vein. SURGEON: Barney Nj MD ANESTHESIA: Local plus IV sedation. INDICATIONS.: Risks, benefits, complications, alternative treatment explained to the patient and the family. Consent obtained. OPERATIVE PROCEDURE: Patient was placed in supine position. Access was gained in the left internal jugular vein. Guidewire would not advance. 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 At this time, access was gained in the left common femoral vein. Using guidewire ultrasound guidance, guidewire was advanced through without any difficulty. Subcutaneous tissue was dilated. A 50-cm dialysis catheter advanced over a guidewire after going into the subcutaneous tunnel. The tip was placed at the junction of the inferior vena cava and right atrium. Both ports of the catheter were aspirated and injected using heparinized saline solution. Catheter was secured to skin using 2-0 silk sutures. The exit site on the femoral side was closed using a single 3-0 Vicryl suture in interrupted fashion. Patient tolerated the procedure well. Dictated By: Barney jN MD /liang/jose martin /Document#: [id number]
[2017-06-01] VITALS (17 sets, daily range): BP systolic 113–157; BP diastolic 56–79; PULSE 67–86; RESP 18–19
[2017-06-01] MEDS: morphine 2 MG INJ IV PRN (02:47)
[2017-06-01 08:32] LABS: BASOPHIL # 0.1 10^3/ul (0.0-0.1); BASOPHILS % 0.6 % (0.0-2.0); EOSINOPHILS # 1.8 10^3/ul (0.0-0.5); HEMATOCRIT 27.8 % (42.0-52.0); HEMOGLOBIN 8.2 g/dl (14.0-18.0); LYMPHOCYTES # 1.2 10^3/ul (0.8-2.9); MEAN CORPUSCULAR HEMOGLOBIN 24.7 pg (29.0-33.0); MEAN CORPUSCULAR HGB CONC 29.5 g/dl (32.0-37.0); MEAN CORPUSCULAR VOLUME 83.7 fl (82.0-101.0); MEAN PLATELET VOLUME 11.4 fl (7.4-10.4); MONOCYTE # 1.1 10^3/ul (0.3-0.9); MONOCYTES % 11.6 % (0.0-11.0); NEUTROPHILS % 55.2 % (39.0-77.0); PLATELET COUNT 159 10^3/UL (140-415); RED BLOOD COUNT 3.32 10^6/ul (4.70-6.10); RED CELL DISTRIBUTION WIDTH 16.1 % (11.5-14.5); WHITE BLOOD COUNT 9.4 10^3/ul (4.8-10.8)
[2017-06-01 08:36] LABS: EOSINOPHILS % 19.2 % (0.0-7.0)
[2017-06-01 08:46] LABS: CALCIUM 6.6 mg/dl (8.4-10.2); CREATININE 11.51 mg/dl (0.61-1.24); POTASSIUM 5.2 mmol/L (3.5-5.1)
[2017-06-01] MEDS: LOSARTAN 25 MG TAB PO SCH (11:22)
[2017-06-01] MEDS: ASPIRIN (EC) 81 MG TAB PO SCH (11:22)
--- NOTE | 2017-06-01 12:50 | PN ---
Date/Time of Note Date/Time of Note DATE: 06/01/17 TIME: 12:41 Assessment/Plan VTE Prophylaxis VTE Prophylaxis Intervention: SCD's Lines/Catheters IV Catheter Type (from Nrsg): Saline Lock Assessment/Plan Assessment/Plan 1. Malfunction of right femoral dialysis catheter, s/p left femoral dialysis catheter, follow up with vascular, patient refuses to use the new HD catheter 2. Chest wall pain, resolved 3. ESRD due to Polycystic Kidney disease, on HD MWF 4. Anemia multifactorial Chronic renal failure, follow up with nephrology 5. Hyperkalemia, due to renal failure, HD per nephrology 6. 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 8. Diabetes mellitus, stable 9. Pulmonary HTN Subjective 24 Hr Interval Summary Free Text/Dictation no chest pain. pain at left groin from catheter Exam/Review of Systems Vital Signs Vitals Vital Signs Date Time Temp Pulse Resp B/P Pulse Ox O2 Delivery O2 Flow Rate FiO2 06/01/17 12:04 86 06/01/17 11:48 98.3 19 148/71 98 Intake and Output 05/31/17 05/31/17 06/01/17 15:00 23:00 07:00 Intake Total 0 ml 600 ml Output Total 0 ml Balance 0 ml 600 ml Exam Constitutional: alert, obese, oriented, well developed Psych: nl mood/affect, no complaints Head: atraumatic, normocephalic Eyes: EOMI, PERRL, nl conjunctiva, nl lids ENMT: nl external ears & nose, nl lips & teeth, nl nasal mucosa & septum Neck: non-tender, supple Respiratory: clear to auscultation, normal air movement, No congested cough, No crackles/rales, No diminished breath sounds, No intercostal retraction, No labored breathing, No other, No respirations, No tactile fremitus, No wheezing Cardiovascular: nl pulses, regular rate and rhythm, No S3, No S4, No bruits, No diastolic murmur, No edema, No gallop, No irregular rhythm, No jugular venous distention (JVD), No murmurs/extra sounds, No other, No rub, No systolic murmur Gastrointestinal: nl liver, spleen, non-tender, soft, No ascites, No bowel sounds, No distended, No firm, No hepatomegaly, No mass , No other, No rebound or guarding, No splenomegaly, No surgical scars, No tender Musculoskeletal: nl extremities to inspection Extremities: normal pulses, No calf tenderness, No clubbing, No cyanosis, No edema, No other, No palpable cord, No pitting pedal edema, No tenderness 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, nl mental status, nl speech, nl strength Skin: nl turgor Lymph: nl lymph nodes Results Result Diagram: 06/01/1770406/01/17704 Results 24 hrs Laboratory Tests Test 06/01/17 07:05 White Blood Count 9.4 Red Blood Count 3.32 L Hemoglobin 8.2 L Hematocrit 27.8 L Mean Corpuscular Volume 83.7 Mean Corpuscular Hemoglobin 24.7 L Mean Corpuscular Hemoglobin Concent 29.5 L Red Cell Distribution Width 16.1 H Platelet Count 159 Mean Platelet Volume 11.4 H Neutrophils % 55.2 Lymphocytes % 13.0 L Monocytes % 11.6 H Eosinophils % 19.2 H Basophils % 0.6 Nucleated Red Blood Cells % 0.0 Neutrophils # (Manual) 5.2 Lymphocytes # 1.2 Monocytes # 1.1 H Eosinophils # 1.8 H Basophils # 0.1 Nucleated Red Blood Cells # 0.0 Sodium Level 143 Potassium Level 5.2 H Chloride Level 103 Carbon Dioxide Level 27 Anion Gap 18 H Blood Urea Nitrogen 57 H Creatinine 11.51 H Glucose Level 82 Calcium Level 6.6 L Medications Medications Current Medications Morphine Sulfate (morphine) 2 mg Q4H PRN IV PAIN Last administered on 06/01/17 02:47; Admin Dose 2 MG; Start 05/25/17 at 22:00 Lorazepam (Ativan) 1 mg Q4H PRN IV AGITATION/ANXIETY Last administered on 02:00; Admin Dose 1 MG; Start 05/26/17 at 01:50 Ondansetron HCl (Zofran Inj) 4 mg Q6H PRN IV NAUSEA AND/OR VOMITING; Start at 04:00 Hydralazine HCl (Apresoline) 10 mg Q6H PRN IV SBP>160; Start 05/27/17 at 12:00 Carvedilol (Coreg) 3.125 mg BID PO Last administered on 06/01/17 11:23; Admin Dose 3.125 MG; Start 05/27/17 at 12:00 Losartan Potassium (Cozaar) 25 mg DAILY PO Last administered on 06/01/17 11:22 ; Admin Dose 25 MG; Start 05/27/17 at 12:00 Aspirin (Halfprin) 81 mg DAILY PO Last administered on 06/01/17 11:22; Admin Dose 81 MG; Start 05/27/17 at 15:30 DANIEL EDGAR MD Jun 01, 2017 12:50
--- NOTE | 2017-06-01 13:13 | CONS ---
Date/Time of Note Date/Time of Note DATE: 06/01/17 TIME: 13:11 Assessment/Plan Assessment/Plan Additional Assessment/Plan Chest wall pain at previous hemodialysis catheter site, resolved since removal Cardiomyopathy with ejection fraction 45% History of paroxysmal fibrillation status post cardioversion, noncompliant with anticoagulation End-stage renal disease on hemodialysis -Blood pressure trend overall stable. Fluid management via hemodialysis as per our nephrology colleagues. Patient complaining of pain at new hemodialysis catheter site in groin. Awaiting vascular follow-up. Consultation Date/Type/Reason Admit Date/Time May 25, 2017 at 19:39 Initial Consult Date 05/26/17 Type of Consultation: cv Referring Provider: VASYL GALLO 24 HR Interval Summary Free Text/Dictation Denies shortness of breath, chest pain. Complaining of pain at new hemodialysis catheter site Exam/Review of Systems Vital Signs Vitals Vital Signs Date Time Temp Pulse Resp B/P Pulse Ox O2 Delivery O2 Flow Rate FiO2 06/01/17 12:04 86 06/01/17 11:48 98.3 19 148/71 98 Intake and Output 05/31/17 05/31/17 06/01/17 15:00 23:00 07:00 Intake Total 0 ml 600 ml Output Total 0 ml Balance 0 ml 600 ml Exam No apparent distress Constitutional: alert, obese, oriented Head: normocephalic Respiratory: other (Coarse breath sounds bilaterally, no wheezing) Cardiovascular: other (S1-S2 heard), regular rate and rhythm Gastrointestinal: bowel sounds, non-tender, soft Extremities: edema Results Result Diagram: 06/01/17 0705 06/01/17 0705 Results 24 hrs Laboratory Tests Test 06/01/17 07:05 White Blood Count 9.4 Red Blood Count 3.32 L Hemoglobin 8.2 L Hematocrit 27.8 L Mean Corpuscular Volume 83.7 Mean Corpuscular Hemoglobin 24.7 L Mean Corpuscular Hemoglobin Concent 29.5 L Red Cell Distribution Width 16.1 H Platelet Count 159 Mean Platelet Volume 11.4 H Neutrophils % 55.2 Lymphocytes % 13.0 L Monocytes % 11.6 H Eosinophils % 19.2 H Basophils % 0.6 Nucleated Red Blood Cells % 0.0 Neutrophils # (Manual) 5.2 Lymphocytes # 1.2 Monocytes # 1.1 H Eosinophils # 1.8 H Basophils # 0.1 Nucleated Red Blood Cells # 0.0 Sodium Level 143 Potassium Level 5.2 H Chloride Level 103 Carbon Dioxide Level 27 Anion Gap 18 H Blood Urea Nitrogen 57 H Creatinine 11.51 H Glucose Level 82 Calcium Level 6.6 L Medications Medications Current Medications Morphine Sulfate (morphine) 2 mg Q4H PRN IV PAIN Last administered on 06/01/17 02:47; Admin Dose 2 MG; Start 05/25/17 at 22:00 Lorazepam (Ativan) 1 mg Q4H PRN IV AGITATION/ANXIETY Last administered on 02:00; Admin Dose 1 MG; Start 05/26/17 at 01:50 Ondansetron HCl (Zofran Inj) 4 mg Q6H PRN IV NAUSEA AND/OR VOMITING; Start at 04:00 Hydralazine HCl (Apresoline) 10 mg Q6H PRN IV SBP>160; Start 05/27/17 at 12:00 Carvedilol (Coreg) 3.125 mg BID PO Last administered on 06/01/17 11:23; Admin Dose 3.125 MG; Start 05/27/17 at 12:00 Losartan Potassium (Cozaar) 25 mg DAILY PO Last administered on 06/01/17 11:22 ; Admin Dose 25 MG; Start 05/27/17 at 12:00 Aspirin (Halfprin) 81 mg DAILY PO Last administered on 06/01/17 11:22; Admin Dose 81 MG; Start 05/27/17 at 15:30 Kendall Boyd DO Jun 01, 2017 13:13
--- NOTE | 2017-06-01 16:18 | CONS ---
Date/Time of Note Date/Time of Note DATE: 06/01/17 TIME: 16:15 Assessment/Plan Assessment/Plan Additional Assessment/Plan 1. Left neck, catheter site bleeding- stopped after removal of catheter 2. Impropre positioning of left Permcath HD catheter s/p Removal on 05/26/17 3. ESRD on HD MWF 4. Anemia multifactorial Chronic renal failure + bleeding 5. Hyperkalemia, uremia due to missed HD 6. 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 8. Diabetes melitus 9. Pulmonary HTN 10.H/o Polycystic Kidney disease causign ESRD onHD Plan: Old permacath from left chest has been removed, pt is now has left groin permacath, c/o left groin pain, so we will did not use it- has been informed to take a look at it meanwhile he has HD today through Right groin artur Catheter- did not work well, will d/c that catheter Pt currently hemodynamically stable continue HD on MWF will follow up Consultation Date/Type/Reason Admit Date/Time May 25, 2017 at 19:39 Initial Consult Date 05/26/17 Type of Consultation: NEPHROLOGY Referring Provider: VASYL GALLO 24 HR Interval Summary Free Text/Dictation c/o left groin permacath placement, still has right groin artur which is not working well , c/o left groin pain Exam/Review of Systems Vital Signs Vitals Vital Signs Date Time Temp Pulse Resp B/P Pulse Ox O2 Delivery O2 Flow Rate FiO2 06/01/17 15:48 98.4 69 19 113/56 96 Intake and Output 05/31/17 05/31/17 06/01/17 15:00 23:00 07:00 Intake Total 0 ml 600 ml Output Total 0 ml Balance 0 ml 600 ml Exam Constitutional: alert Psych: no complaints Head: normocephalic Eyes: nl conjunctiva ENMT: nl external ears & nose Neck: non-tender, supple Respiratory: clear to auscultation, diminished breath sounds, normal air movement Cardiovascular: nl pulses, regular rate and rhythm Gastrointestinal: non-tender, soft Musculoskeletal: nl extremities to inspection, nl gait and stance, other ( Right groin artur ) Neurological: PIPER INSTALLER II-XII intact Skin: nl turgor Lymph: nl lymph nodes Results Result Diagram: 06/01/17 0705 06/01/17 0705 Results 24 hrs Laboratory Tests Test 06/01/17 07:05 White Blood Count 9.4 Red Blood Count 3.32 L Hemoglobin 8.2 L Hematocrit 27.8 L Mean Corpuscular Volume 83.7 Mean Corpuscular Hemoglobin 24.7 L Mean Corpuscular Hemoglobin Concent 29.5 L Red Cell Distribution Width 16.1 H Platelet Count 159 Mean Platelet Volume 11.4 H Neutrophils % 55.2 Lymphocytes % 13.0 L Monocytes % 11.6 H Eosinophils % 19.2 H Basophils % 0.6 Nucleated Red Blood Cells % 0.0 Neutrophils # (Manual) 5.2 Lymphocytes # 1.2 Monocytes # 1.1 H Eosinophils # 1.8 H Basophils # 0.1 Nucleated Red Blood Cells # 0.0 Sodium Level 143 Potassium Level 5.2 H Chloride Level 103 Carbon Dioxide Level 27 Anion Gap 18 H Blood Urea Nitrogen 57 H Creatinine 11.51 H Glucose Level 82 Calcium Level 6.6 L Medications Medications Current Medications Morphine Sulfate (morphine) 2 mg Q4H PRN IV PAIN Last administered on 06/01/17 02:47; Admin Dose 2 MG; Start 05/25/17 at 22:00 Lorazepam (Ativan) 1 mg Q4H PRN IV AGITATION/ANXIETY Last administered on 02:00; Admin Dose 1 MG; Start 05/26/17 at 01:50 Ondansetron HCl (Zofran Inj) 4 mg Q6H PRN IV NAUSEA AND/OR VOMITING; Start at 04:00 Hydralazine HCl (Apresoline) 10 mg Q6H PRN IV SBP>160; Start 05/27/17 at 12:00 Carvedilol (Coreg) 3.125 mg BID PO Last administered on 06/01/17 11:23; Admin Dose 3.125 MG; Start 05/27/17 at 12:00 Losartan Potassium (Cozaar) 25 mg DAILY PO Last administered on 06/01/17 11:22 ; Admin Dose 25 MG; Start 05/27/17 at 12:00 Aspirin (Halfprin) 81 mg DAILY PO Last administered on 06/01/17 11:22; Admin Dose 81 MG; Start 8/27/17 at 15:30 SHAWNA WILHELM MD Jun 01, 2017 16:18
[2017-06-02] VITALS (12 sets, daily range): BP systolic 128–168; BP diastolic 63–93; PULSE 55–97; RESP 18–20
[2017-06-02 07:47] LABS: BASOPHIL # 0.1 10^3/ul (0.0-0.1); BASOPHILS % 0.6 % (0.0-2.0); HEMATOCRIT 26.6 % (42.0-52.0); HEMOGLOBIN 7.9 g/dl (14.0-18.0); LYMPHOCYTES # 1.4 10^3/ul (0.8-2.9); LYMPHOCYTES % 15.8 % (15.0-51.0); MEAN CORPUSCULAR HEMOGLOBIN 24.7 pg (29.0-33.0); MEAN CORPUSCULAR HGB CONC 29.7 g/dl (32.0-37.0); MEAN CORPUSCULAR VOLUME 83.1 fl (82.0-101.0); MEAN PLATELET VOLUME 11.9 fl (7.4-10.4); MONOCYTE # 1.1 10^3/ul (0.3-0.9); MONOCYTES % 11.9 % (0.0-11.0); NEUTROPHILS % 49.1 % (39.0-77.0); PLATELET COUNT 126 10^3/UL (140-415)
[2017-06-02 07:50] LABS: EOSINOPHILS % 22.2 % (0.0-7.0)
[2017-06-02 08:15] LABS: CALCIUM 6.5 mg/dl (8.4-10.2); CREATININE 10.92 mg/dl (0.61-1.24); POTASSIUM 5.3 mmol/L (3.5-5.1)
[2017-06-02] MEDS: ASPIRIN (EC) 81 MG TAB PO SCH (08:43)
[2017-06-02] MEDS: LOSARTAN 25 MG TAB PO SCH (08:45)
--- NOTE | 2017-06-02 12:06 | CONS ---
Date/Time of Note Date/Time of Note DATE: 06/02/17 TIME: 12:00 Assessment/Plan Assessment/Plan Additional Assessment/Plan 1. Hyperkalemia 5.3 -will give Kayexalate 15gm po x1. CMP am 1. Left neck, catheter site bleeding- stopped after removal of catheter 2. Improper positioning of left PermCath HD catheter s/p Removal on 05/26/17 3. ESRD on HD MWF 4. Anemia multifactorial Chronic renal failure + bleeding- transfuse PRN 5. Hyperkalemia, uremia due to missed HD 6. 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 8. Diabetes mellitus 9. Pulmonary HTN 10.H/o Polycystic Kidney disease causing ESRD onHD Plan: -Old permacath from left chest has been removed, pt is now has left groin permacath, c/o left groin pain, so we will did not use it- has been informed to take a look at it- PENDING EVALUATION meanwhile he has HD today through Right groin artur Catheter- did not work well, will d/c that catheter -Pt currently hemodynamically stable -continue HD on MWF -will follow up - Plan of care jimmie Escobar/staff Consultation Date/Type/Reason Admit Date/Time May 25, 2017 at 19:39 Initial Consult Date 05/26/17 Type of Consultation: NEPHROLOGY Referring Provider: VASYL GALLO 24 HR Interval Summary Free Text/Dictation sleeping, nad, easily responsive, wants to go home,c/o left groin pain, so we will did not use it- PENDING EVALUATION from . dw staff Constitutional: improved Detailed Summary Respiratory: no complaints Cardiovascular: no complaints Gastrointestinal: no complaints Genitourinary: no complaints Musculoskeletal: no complaints Exam/Review of Systems Vital Signs Vitals Vital Signs Date Time Temp Pulse Resp B/P Pulse Ox O2 Delivery O2 Flow Rate FiO2 06/02/17 11:29 98.2 70 19 128/79 95 Intake and Output 06/01/17 06/01/17 06/02/17 15:00 23:00 07:00 Intake Total 400 ml 800 ml 240 ml Output Total 3400 ml 3000 ml Balance -3000 ml -2200 ml 240 ml Exam Constitutional: alert, obese, oriented Respiratory: clear to auscultation, normal air movement Cardiovascular: nl pulses, regular rate and rhythm Gastrointestinal: non-tender, soft Musculoskeletal: nl extremities to inspection Extremities: normal pulses Neurological: nl mental status, nl speech Skin: nl turgor Results Result Diagram: 06/02/17 0652 06/02/17 0652 Results 24 hrs Laboratory Tests Test 06/02/17 06:52 White Blood Count 9.0 Red Blood Count 3.20 L Hemoglobin 7.9 L Hematocrit 26.6 L Mean Corpuscular Volume 83.1 Mean Corpuscular Hemoglobin 24.7 L Mean Corpuscular Hemoglobin Concent 29.7 L Red Cell Distribution Width 16.0 H Platelet Count 126 #L Mean Platelet Volume 11.9 H Neutrophils % 49.1 Lymphocytes % 15.8 Monocytes % 11.9 H Eosinophils % 22.2 H Basophils % 0.6 Nucleated Red Blood Cells % 0.0 Neutrophils # (Manual) 4.4 Lymphocytes # 1.4 Monocytes # 1.1 H Eosinophils # 2.0 H Basophils # 0.1 Nucleated Red Blood Cells # 0.0 Sodium Level 141 Potassium Level 5.3 H Chloride Level 103 Carbon Dioxide Level 25 Anion Gap 18 H Blood Urea Nitrogen 60 H Creatinine 10.92 H Glucose Level 87 Calcium Level 6.5 L Hepatitis B Surface Antigen NEGATIVE Hepatitis C Antibody NEGATIVE Medications Medications Current Medications Morphine Sulfate (morphine) 2 mg Q4H PRN IV PAIN Last administered on 06/01/17 02:47; Admin Dose 2 MG; Start 05/25/17 at 22:00 Lorazepam (Ativan) 1 mg Q4H PRN IV AGITATION/ANXIETY Last administered on 02:00; Admin Dose 1 MG; Start 05/26/17 at 01:50 Ondansetron HCl (Zofran Inj) 4 mg Q6H PRN IV NAUSEA AND/OR VOMITING; Start at 04:00 Hydralazine HCl (Apresoline) 10 mg Q6H PRN IV SBP>160; Start 05/27/17 at 12:00 Carvedilol (Coreg) 3.125 mg BID PO Last administered on 06/02/17 08:44; Admin Dose 3.125 MG; Start 05/27/17 at 12:00 Losartan Potassium (Cozaar) 25 mg DAILY PO Last administered on 06/02/17 08:45 ; Admin Dose 25 MG; Start 05/27/17 at 12:00 Aspirin (Halfprin) 81 mg DAILY PO Last administered on 06/02/17 08:43; Admin Dose 81 MG; Start 05/27/17 at 15:30 TOMASZ VEGA Jun 02, 2017 12:06
[2017-06-02] MEDS ORDERED: NA POLYST SULFON 15 GM/60 ML BTL PO ONE (12:30)
--- NOTE | 2017-06-02 14:12 | PN ---
Date/Time of Note Date/Time of Note DATE: 06/02/17 TIME: 14:01 Assessment/Plan VTE Prophylaxis VTE Prophylaxis Intervention: SCD's Lines/Catheters IV Catheter Type (from Nrs): Saline Lock Assessment/Plan Chief Complaint/Hosp Course Assessment and plan 1. Malpositioning of hemodialysis catheter. Patient status post emergent removal by vascular surgeon and placement of right femoral vein hemodialysis catheter. s/p permacath placement. Follow-up with vascular surgeon 2. Left chest wall pain. Likely secondary to malpositioning of hemodialysis catheter that was previously on the left upper chest side. There is slight troponin elevation but this is also in the setting of renal insufficiency. Monitor trend. Continue with cardiology recommendations. Likely false elevated troponin. 3. Cardiomyopathy with ejection fraction 45%. It is reported that patient was not on any home medications. Smoking Pipe Liner following at this time. Continue optimization with cardiac medications. Continue with product director recommendations. stable 4. Essential hypertension. Continue antihypertensives and adjust as needed. hydralazine prn for sbp>160. Stable 5. History of end-stage renal disease. On dialysis per frame opener. 6. Microcytic hypochromic anemia. Likely of chronic disease. Will monitor at this time. stable at present 7. History of atrial fibrillation. Monitor on telemetry. Continue on beta- mat for now. 8. Hypocalcemia. improved post replacement. monitor Disposition and plan: Status post permacath placement. Dialysis per frame opener. Anticipate discharge within the next 24 hours if medically stable for by consultants Discussed plan of care with Dr. Costa Problems: Subjective 24 Hr Interval Summary Free Text/Dictation no s/s of distress. comfortable at present Exam/Review of Systems Vital Signs Vitals Vital Signs Date Time Temp Pulse Resp B/P Pulse Ox O2 Delivery O2 Flow Rate FiO2 06/02/17 12:07 55 06/02/17 11:29 98.2 19 128/79 95 Intake and Output 06/01/17 06/01/17 06/02/17 15:00 23:00 07:00 Intake Total 400 ml 800 ml 240 ml Output Total 3400 ml 3000 ml Balance -3000 ml -2200 ml 240 ml Exam Constitutional: alert, obese, oriented Psych: nl mood/affect Head: normocephalic Neck: supple Respiratory: clear to auscultation, normal air movement Cardiovascular: other (regular rate ) Gastrointestinal: non-tender, soft Musculoskeletal: nl extremities to inspection Neurological: MANUFACTURING SUPERVISOR II-XII intact, nl mental status, nl speech Skin: other (left femoral permacath) Results Result Diagram: 06/02/17 0652 06/02/17 0652 Results 24 hrs Laboratory Tests Test 06/02/17 06:52 White Blood Count 9.0 Red Blood Count 3.20 L Hemoglobin 7.9 L Hematocrit 26.6 L Mean Corpuscular Volume 83.1 Mean Corpuscular Hemoglobin 24.7 L Mean Corpuscular Hemoglobin Concent 29.7 L Red Cell Distribution Width 16.0 H Platelet Count 126 #L Mean Platelet Volume 11.9 H Neutrophils % 49.1 Lymphocytes % 15.8 Monocytes % 11.9 H Eosinophils % 22.2 H Basophils % 0.6 Nucleated Red Blood Cells % 0.0 Neutrophils # (Manual) 4.4 Lymphocytes # 1.4 Monocytes # 1.1 H Eosinophils # 2.0 H Basophils # 0.1 Nucleated Red Blood Cells # 0.0 Sodium Level 141 Potassium Level 5.3 H Chloride Level 103 Carbon Dioxide Level 25 Anion Gap 18 H Blood Urea Nitrogen 60 H Creatinine 10.92 H Glucose Level 87 Calcium Level 6.5 L Hepatitis B Surface Antigen NEGATIVE Hepatitis C Antibody NEGATIVE Medications Medications Current Medications Morphine Sulfate (morphine) 2 mg Q4H PRN IV PAIN Last administered on 06/01/17 02:47; Admin Dose 2 MG; Start 05/25/17 at 22:00 Lorazepam (Ativan) 1 mg Q4H PRN IV AGITATION/ANXIETY Last administered on 02:00; Admin Dose 1 MG; Start 05/26/17 at 01:50 Ondansetron HCl (Zofran Inj) 4 mg Q6H PRN IV NAUSEA AND/OR VOMITING; Start at 04:00 Hydralazine HCl (Apresoline) 10 mg Q6H PRN IV SBP>160; Start 05/27/17 at 12:00 Carvedilol (Coreg) 3.125 mg BID PO Last administered on 06/02/17 08:44; Admin Dose 3.125 MG; Start 05/27/17 at 12:00 Losartan Potassium (Cozaar) 25 mg DAILY PO Last administered on 06/02/17 08:45 ; Admin Dose 25 MG; Start 05/27/17 at 12:00 Aspirin (Halfprin) 81 mg DAILY PO Last administered on 06/02/17 08:43; Admin Dose 81 MG; Start 05/27/17 at 15:30 RUSSELL JENSEN Jun 02, 2017 14:12
[2017-06-03] VITALS (9 sets, daily range): BP systolic 116–149; BP diastolic 63–79; PULSE 80–93; RESP 18–21
[2017-06-03] MEDS: ASPIRIN (EC) 81 MG TAB PO SCH (08:11)
[2017-06-03 08:43] LABS: CALCIUM 6.7 mg/dl (8.4-10.2); CREATININE 11.77 mg/dl (0.61-1.24); POTASSIUM 5.9 mmol/L (3.5-5.1)
[2017-06-03] MEDS ORDERED: TRAM50TA2 PO (09:08)
[2017-06-03] MEDS ORDERED: LOSA25TA2 PO (09:08)
[2017-06-03] MEDS ORDERED: ASPI-664 PO (09:08)
[2017-06-03] MEDS ORDERED: CARV3.1260 PO (09:08)
--- NOTE | 2017-06-03 09:26 | PDOCDIS ---
Discharge Instructions DIAGNOSIS Discharge Diagnosis 1. Malpositioning of hemodialysis catheter. 2. Left chest wall pain. 3. Cardiomyopathy with ejection fraction 45%. 4. Essential hypertension. 5. History of end-stage renal disease. 6. Microcytic hypochromic anemia. 7. History of atrial fibrillation. 8. Hypocalcemia. CONDITION Patient Condition: Stable HOME CARE INSTRUCTIONS: Diet Instructions: Low Fat /CholesterolSpecial Diet: RENAL FOLLOW UP/APPOINTMENTS Follow-up Plan 1. Follow up with your dialysis clinic for your regular scheduled dialysis 2. Follow up with your primary care provider in one week RUSSELL JENSEN Jun 03, 2017 09:26
--- NOTE | 2017-06-03 09:31 | CONS ---
Date/Time of Note Date/Time of Note DATE: 06/03/17 TIME: 09:26 Assessment/Plan Assessment/Plan Chief Complaint/Hosp Course Chest wall pain at previous hemodialysis catheter site, resolved since removal Cardiomyopathy with ejection fraction 45% History of paroxysmal fibrillation status post cardioversion, noncompliant with anticoagulation End-stage renal disease on hemodialysis Problems: Additional Assessment/Plan continue beta mat continue ARB Consultation Date/Type/Reason Admit Date/Time May 25, 2017 at 19:39 Initial Consult Date 05/26/17 Type of Consultation: cv Referring Provider: VASYL GALLO 24 HR Interval Summary Free Text/Dictation no chest pain, no sob Detailed Summary Respiratory: no complaints Cardiovascular: no complaints Gastrointestinal: no complaints Musculoskeletal: no complaints Skin: no complaints Neurologic: no complaints Exam/Review of Systems Vital Signs Vitals Vital Signs Date Time Temp Pulse Resp B/P Pulse Ox O2 Delivery O2 Flow Rate FiO2 06/03/17 08:16 97.9 78 18 146/70 97 Intake and Output 06/02/17 06/02/17 06/03/17 15:00 23:00 07:00 Intake Total 700 ml 550 ml Balance 700 ml 550 ml Exam Constitutional: alert Psych: no complaints Head: atraumatic, normocephalic Eyes: EOMI, PERRL, nl conjunctiva, nl lids, nl sclera ENMT: nl external ears & nose, nl lips & teeth, nl nasal mucosa & septum Neck: supple Respiratory: clear to auscultation Cardiovascular: regular rate and rhythm Gastrointestinal: soft Musculoskeletal: nl extremities to inspection Extremities: normal pulses Neurological: SATURATION EQUIPMENT OPERATOR II-XII intact, nl mental status, nl speech, nl strength Skin: nl turgor, No rash or lesions Lymph: nl lymph nodes Results Result Diagram: 06/02/17 0652 06/03/17 0727 Results 24 hrs Laboratory Tests Test 06/03/17 07:27 Sodium Level 141 Potassium Level 5.9 H Chloride Level 102 Carbon Dioxide Level 24 Anion Gap 21 H Blood Urea Nitrogen 75 H Creatinine 11.77 H Glucose Level 100 Calcium Level 6.7 L Medications Medications Current Medications Morphine Sulfate (morphine) 2 mg Q4H PRN IV PAIN Last administered on 06/01/17t 02:47; Admin Dose 2 MG; Start 05/25/17 at 22:00 Lorazepam (Ativan) 1 mg Q4H PRN IV AGITATION/ANXIETY Last administered on 02:00; Admin Dose 1 MG; Start 05/26/17 at 01:50 Ondansetron HCl (Zofran Inj) 4 mg Q6H PRN IV NAUSEA AND/OR VOMITING; Start at 04:00 Hydralazine HCl (Apresoline) 10 mg Q6H PRN IV SBP>160; Start 05/27/17 at 12:00 Carvedilol (Coreg) 3.125 mg BID PO Last administered on 06/02/17 21:20; Admin Dose 3.125 MG; Start 05/27/17 at 12:00 Losartan Potassium (Cozaar) 25 mg DAILY PO Last administered on 06/02/17 08:45 ; Admin Dose 25 MG; Start 05/27/17 at 12:00 Aspirin (Halfprin) 81 mg DAILY PO Last administered on 06/03/17 08:11; Admin Dose 81 MG; Start 05/27/17 at 15:30 MARTHA CHU MD Jun 03, 2017 09:31
[2017-06-03] MEDS: LOSARTAN 25 MG TAB PO SCH (10:44)
[2017-06-03] MEDS ORDERED: NA POLYST SULFON 15 GM/60 ML BTL PO ONE ×2 (12:00→17:00)
--- NOTE | 2017-06-03 12:01 | PN ---
Date/Time of Note Date/Time of Note DATE: 06/03/17 TIME: 11:56 Assessment/Plan Lines/Catheters IV Catheter Type (from Nrsg): Saline Lock Urinary Cath still in place: No Assessment/Plan Assessment/Plan 1. Hyperkalemia 5.3 -will give Kayexalate 15gm po x1. CMP am 1. Left neck, catheter site bleeding- stopped after removal of catheter 2. Improper positioning of left PermCath HD catheter s/p Removal on 05/26/17 3. ESRD on HD MWF 4. Anemia multifactorial Chronic renal failure + bleeding- transfuse PRN 5. Hyperkalemia, uremia due to missed HD 6. 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 8. Diabetes mellitus 9. Pulmonary HTN 10.H/o Polycystic Kidney disease causing ESRD onHD Plan: -Old permacath from left chest has been removed, pt is now has left groin permacath, c/o left groin pain, so we will did not use it- has been informed to take a look at it- PENDING EVALUATION meanwhile he has HD today through Right groin artur Catheter- did not work well, will d/c that catheter -Pt currently hemodynamically stable -continue HD on MWF -will follow up - Plan of care jimmie Escobar/staff Exam/Review of Systems Vital Signs Vitals Vital Signs Date Time Temp Pulse Resp B/P Pulse Ox O2 Delivery O2 Flow Rate FiO2 06/03/17 08:16 97.9 78 18 146/70 97 Intake and Output 06/02/17 06/02/17 06/03/17 15:00 23:00 07:00 Intake Total 700 ml 550 ml Balance 700 ml 550 ml Results Result Diagram: 06/02/17 0652 06/03/17 0727 Results 24 hrs Laboratory Tests Test 06/03/17 07:27 Sodium Level 141 Potassium Level 5.9 H Chloride Level 102 Carbon Dioxide Level 24 Anion Gap 21 H Blood Urea Nitrogen 75 H Creatinine 11.77 H Glucose Level 100 Calcium Level 6.7 L Medications Medications Current Medications Morphine Sulfate (morphine) 2 mg Q4H PRN IV PAIN Last administered on 06/01/17t 02:47; Admin Dose 2 MG; Start 05/25/17 at 22:00 Lorazepam (Ativan) 1 mg Q4H PRN IV AGITATION/ANXIETY Last administered on 02:00; Admin Dose 1 MG; Start 05/26/17 at 01:50 Ondansetron HCl (Zofran Inj) 4 mg Q6H PRN IV NAUSEA AND/OR VOMITING; Start at 04:00 Hydralazine HCl (Apresoline) 10 mg Q6H PRN IV SBP>160; Start 05/27/17 at 12:00 Carvedilol (Coreg) 3.125 mg BID PO Last administered on 06/03/17 10:45; Admin Dose 3.125 MG; Start 05/27/17 at 12:00 Losartan Potassium (Cozaar) 25 mg DAILY PO Last administered on 06/03/17 10:44 ; Admin Dose 25 MG; Start 05/27/17 at 12:00 Aspirin (Halfprin) 81 mg DAILY PO Last administered on 06/03/17 08:11; Admin Dose 81 MG; Start 05/27/17 at 15:30 TOMASZ VEGA Jun 03, 2017 12:01
--- NOTE | 2017-06-03 12:05 | CONS ---
Date/Time of Note Date/Time of Note DATE: 06/03/17 TIME: 12:01 Assessment/Plan Assessment/Plan Additional Assessment/Plan 1. Hyperkalemia 5.9 -will give Kayexalate 30 gm po x1. BMP am 1. Left neck, catheter site bleeding- stopped after removal of catheter 2. Improper positioning of left PermCath HD catheter s/p Removal on 05/26/17 3. ESRD on HD MWF 4. Anemia multifactorial Chronic renal failure + bleeding- transfuse PRN 5. Hyperkalemia, uremia due to missed HD 6. 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 8. Diabetes mellitus 9. Pulmonary HTN 10.H/o Polycystic Kidney disease causing ESRD onHD Plan: -Old permacath from left chest has been removed, pt is now has left groin permacath, c/o left groin pain, so we will did not use it- has been informed to take a look at it- PENDING EVALUATION meanwhile he has HD today through Right groin artur Catheter- did not work well, will d/c that catheter -Pt currently hemodynamically stable -continue HD on MWF -will follow up - Plan of care dw Dr Aurelia Escobar/staff Consultation Date/Type/Reason Admit Date/Time May 25, 2017 at 19:39 Initial Consult Date 05/26/17 Type of Consultation: cv Referring Provider: VASYL GALLO Detailed Summary Respiratory: no complaints Cardiovascular: no complaints Gastrointestinal: no complaints Musculoskeletal: no complaints Skin: no complaints Exam/Review of Systems Vital Signs Vitals Vital Signs Date Time Temp Pulse Resp B/P Pulse Ox O2 Delivery O2 Flow Rate FiO2 06/03/17 08:16 97.9 78 18 146/70 97 Intake and Output 06/02/17 06/02/17 06/03/17 15:00 23:00 07:00 Intake Total 700 ml 550 ml Balance 700 ml 550 ml Exam Constitutional: alert, obese, oriented Respiratory: clear to auscultation, normal air movement Cardiovascular: nl pulses, regular rate and rhythm Gastrointestinal: soft Musculoskeletal: nl extremities to inspection Extremities: normal pulses Neurological: nl mental status, nl speech Results Result Diagram: 06/02/17 0652 06/03/17 0727 Results 24 hrs Laboratory Tests Test 06/03/17 07:27 Sodium Level 141 Potassium Level 5.9 H Chloride Level 102 Carbon Dioxide Level 24 Anion Gap 21 H Blood Urea Nitrogen 75 H Creatinine 11.77 H Glucose Level 100 Calcium Level 6.7 L Medications Medications Current Medications Morphine Sulfate (morphine) 2 mg Q4H PRN IV PAIN Last administered on 06/01/17 02:47; Admin Dose 2 MG; Start 05/25/17 at 22:00 Lorazepam (Ativan) 1 mg Q4H PRN IV AGITATION/ANXIETY Last administered on 02:00; Admin Dose 1 MG; Start 05/26/17 at 01:50 Ondansetron HCl (Zofran Inj) 4 mg Q6H PRN IV NAUSEA AND/OR VOMITING; Start at 04:00 Hydralazine HCl (Apresoline) 10 mg Q6H PRN IV SBP>160; Start 05/27/17 at 12:00 Carvedilol (Coreg) 3.125 mg BID PO Last administered on 06/03/17 10:45; Admin Dose 3.125 MG; Start 05/27/17 at 12:00 Losartan Potassium (Cozaar) 25 mg DAILY PO Last administered on 06/03/17 10:44 ; Admin Dose 25 MG; Start 05/27/17 at 12:00 Aspirin (Halfprin) 81 mg DAILY PO Last administered on 06/03/17 08:11; Admin Dose 81 MG; Start 05/27/17 at 15:30 TOMASZ VEGA Jun 03, 2017 12:05
--- NOTE | 2017-06-03 17:09 | DS ---
Date/Time of Note Date/Time of Note DATE: 06/03/17 TIME: 17:04 Discharge Summary Admission/Discharge Info Admit Date/Time May 25, 2017 at 19:39 Discharge Date/Time Discharge Diagnosis 1. Malpositioning of hemodialysis catheter. 2. Left chest wall pain. 3. Cardiomyopathy with ejection fraction 45%. 4. Essential hypertension. 5. History of end-stage renal disease. 6. Microcytic hypochromic anemia. 7. History of atrial fibrillation. 8. Hypocalcemia. Patient Condition: Stable Consults 1. Dr. Bib gibson 2. Dr. Barney Nj 3. [facility]. [facility] This is a 62-year-old male with history of hypertension, diabetes, anemia chronic disease, end-stage renal disease on dialysis on Sunday and Sunday, upper extremity thrombosis on the right side, polycystic kidney disease, to [facility] due to reports of chest pain on left side while he was doing dialysis. Patient did have a temporary dialysis catheter placed the day prior to dialysis on the left side. He was noted that he was having issues with his right AV fistula. He did have CT scan that did show temporary access dialysis catheter was wrongly placed. Patient was seen with vascular surgeon did have placement of temporary right femoral dialysis catheter. He was also supposed to see if possibility of a fistula could be repaired however at this time it could not be. Patient was instructed to follow-up with us vascular surgeon as outpatient for further future placement of AV fistula. During his hospitalization however he did have left femoral he was otherwise optimized medically with antihypertensives for his hypertension permacath placed and he did tolerate well. He was also seen by database admin for dialysis management. His left chest wall pain likely was secondary to malpositioning of the dialysis catheter. He did have a slight elevation in troponin but this is in the setting of renal insufficiency. Plastic Parts Fabricator Trimmer was following and likely this was also elevated. He did have some cardiomyopathy with ejection fraction of 45% and he was optimized with his cardiac medications. He was previously on anticoagulants for his history of atrial fibrillation however patient was not compliant with these medications and after discussion with cardiology it was decided for no anticoagulation. We did correct electrolytes. During his course of stay he did improve. The plan of care was discussed with the patient and patient did verbalizes understanding. On the day of discharge patient was in stable condition Discussed plan of care with Dr. Costa [place] Meds Active Scripts Tramadol HCl (Tramadol HCl) 50 Mg Tablet, 50 MG PO Q6H Y for PAIN, #30 TAB Prov:RUSSELL JENSEN 06/03/17 Losartan Potassium* (Cozaar*) 25 Mg Tablet, 25 MG PO DAILY for 30 Days, TAB Prov:RUSSELL JENSEN 06/03/17 Carvedilol* (Carvedilol*) 3.125 Mg Tablet, 3.125 MG PO BID for 30 Days, TAB Prov:RUSSELL JENSEN 06/03/17 Aspirin* (Aspirin* EC) 81 Mg Tablet.dr 81 MG PO DAILY for 30 Days Prov:RUSSELL JENSEN 06/03/17 Follow-up Plan CONDITION Patient Condition: Stable HOME CARE INSTRUCTIONS: Diet Instructions: Low Fat /CholesterolSpecial Diet: RENAL FOLLOW UP/APPOINTMENTS Follow-up Plan 1. Follow up with your dialysis clinic for your regular scheduled dialysis 2. Follow up with your primary care provider in one week Primary Care Provider Tye Jiménez Time spent on discharge: > 30 minutes Pending Labs Laboratory Tests Test 06/03/17 07:27 06/03/17 13:44 Sodium Level 141mmol/L (135-144) Potassium Level 5.9mmol/L (3.5-5.1) 5.3mmol/L (3.5-5.1) Chloride Level 102mmol/L (97-110) Carbon Dioxide Level 24mmol/L (21-31) Anion Gap 21 (8-16) Blood Urea Nitrogen 75mg/dl (7-20) Creatinine 11.77mg/dl (0.61-1.24) Glucose Level 100mg/dl (70-220) Calcium Level 6.7mg/dl (8.4-10.2) RUSSELL JENSEN Jun 03, 2017 17:09
== END 2017-06-03 19:34 | disposition home or self-care (01) | DRG 314 ==
LOC: E/R 15:39 → MS4 19:39
PROVIDERS: ADMIT Internal Medicine; ATTEND Internal Medicine
PROC: 5A1D60Z (ICD-10-PCS; principal; 2017-05-26)
PROC: 05PYX3Z Removal of Infusion Device from Upper Vein, External Approach (ICD-10-PCS; 2017-05-26)
PROC: 06H033Z Insertion of Infusion Device into Inferior Vena Cava, Percutaneous Approach (ICD-10-PCS; 2017-05-31)
DX: T82.42XA Displacement of vascular dialysis catheter, initial encounter (principal); N18.6 End stage renal disease; I12.0 Hypertensive chronic kidney disease with stage 5 chronic kidney disease or end stage renal disease; I27.82 Chronic pulmonary embolism; I42.9 Cardiomyopathy, unspecified; Q61.3 Polycystic kidney, unspecified; I82.722 Chronic embolism and thrombosis of deep veins of left upper extremity; I27.2 Other secondary pulmonary hypertension; Z99.2 Dependence on renal dialysis; E11.9 Type 2 diabetes mellitus without complications; D63.1 Anemia in chronic kidney disease; R07.89 Other chest pain; E87.5 Hyperkalemia; Z91.14 Patient's other noncompliance with medication regimen; Z79.82 Long term (current) use of aspirin
CPT/HCPCS: 71010; 71250; 80048; 80053; 80061; 80069; 82550; 82553; 82728; 83036; 83540; 83735; 83880; 84100; 84132; 84484; 85025; 85610; 85730; 86803; 86850; 86900; 86901; 87340; 90935; 93005; 93306; 96374; 96375; C1769; J0360; J0610; J1644; J2060; J2250; J2270; J2405; J3010; J3475; J3480